=== PATIENT | male | born 1970 | race Caucasian/White ===

== ENCOUNTER 2016-06-09 23:19 | Emergency (ER) | payer OTHER, MEDICARE ==
[~2016-06-09] VITALS: Ht 162.6 cm; Wt 54.4 kg
[~2016-06-09 23:19] MED LIST: AUGMENTIN 875 M1 TAB PO; AUGMENTIN PO; LEVAQUIN25 MG/M1 PO
--- NOTE | 2016-06-10 00:37 | ED GI/GU/ABDOMINAL COMPLAINT ---
History of Present Illness General Chief Complaint: Nausea, Vomiting, Diarrhea Stated Complaint: VOMITING X'S 1 WK HX DOWNS SYNDROME Source: patient Exam Limitations: no limitations Vital Signs & Intake/Output Vital Signs & Intake/Output Vital Signs Date Time Temp Pulse Resp B/P Pulse O2 O2 Flow FiO2 Ox Delivery Rate 06/10 0324 96.8 88 18 120/80 98 Room Air 06/10 0053 96.6 78 18 122/79 96 Room Air 06/10 0049 98 Room Air Allergies Coded Allergies: NO KNOWN ALLERGIES (05/13/13) Reconcile Medications AMOXICILLIN/POTASSIUM CLAV (Augmentin 875-125 Tablet) 875 MG/125 MG TAB 1 TAB PO BID PNEUMONIA CONTINUE ANTIBIOTICS THRU 09/18 Augmentin (Amox-Clav 600-42.9 MG/5 Ml Mayi) 600 MG/5 ML SUSP.RECON 5 ML PO BID INFECTION Ondansetron (Zofran Odt) 4 MG TAB.RAPDIS 1 TAB SL TID PRN VOMITING Triage Nurses Notes Reviewed? yes Onset: Gradual Duration: week(s):, waxing and waning Timing: recent history Quality/Severity: cramping Location: generalized abdomen Radiation: no radiation Activities at Onset: none Prior Abdominal Problems: none Modifying Factors: Improves With: rest. Associated Symptoms: abdominal pain HPI: 45 yo gentleman h/o down's syndrome, presents with nausea, vomiting, diarrhea for 1 week. Usually vomiting after eating. He has had no fever, nor has he seemed to be in discomfort. Past History Medical History Any Pertinent Medical History? 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 No Review of Systems Review of Systems Constitutional: Reports: no symptoms. EENTM: Reports: no symptoms. Respiratory: Reports: no symptoms. Cardiovascular: Reports: no symptoms. GI: Reports: no symptoms. Genitourinary: Reports: no symptoms. Musculoskeletal: Reports: no symptoms. Skin: Reports: no symptoms. Neurological/Psychological: Reports: no symptoms. Hematologic/Endocrine: Reports: no symptoms. Immunologic/Allergic: Reports: no symptoms. All Other Systems: Reviewed and Negative Physical Exam Physical Exam General Appearance: well developed/nourished, no apparent distress Head: atraumatic, normal appearance Eyes: Bilateral: normal appearance. Ears, Nose, Throat, Mouth: hearing grossly normal, moist mucous membrane Neck: normal inspection, supple, full range of motion, normal alignment Respiratory: normal breath sounds, chest non-tender, no respiratory distress, quiet respiration, lungs clear Cardiovascular: regular rate/rhythm Gastrointestinal: normal bowel sounds, soft, non-tender, no organomegaly Back: normal inspection, normal range of motion Extremities: normal range of motion, evidence of injury Neurologic/Psych: no motor/sensory deficits, awake, alert Skin: intact, normal color, warm/dry Core Measures ACS in differential dx? No Severe Sepsis Present: No Septic Shock Present: No Progress Differential Diagnosis: gastroenteritis vs other. Plan of Care: Orders Procedure Date/time Status TROPONIN LEVEL 06/09 2335 Complete LIPASE 06/09 2335 Complete HEPATIC FUNCTION PANEL 06/09 2335 Complete CBC WITHOUT DIFFERENTIAL 06/09 2335 Complete BASIC METABOLIC PANEL 06/09 2335 Complete AMYLASE 06/09 2335 Complete EKG 06/09 2335 Active Laboratory Tests 06/10/16 0040: TSH Cancelled 06/10/16 0040: Anion Gap 16, Estimated GFR > 60, BUN/Creatinine Ratio 17.8, Glucose 100 H, Calcium 9.3, Total Bilirubin 0.7, Direct Bilirubin 0.4, AST 24, ALT 33, Alkaline Phosphatase 79, Troponin I < 0.01, Total Protein 8.0, Albumin 4.3, Amylase 31, Lipase 55, CBC w Diff NO MAN DIFF REQ, RBC 4.74, MCV 93.9, MCH 32.3 H, RDW 13.1 , MPV 6.3 L, Gran % 44.8, Lymphocytes % 43.3, Monocytes % 9.8 H, Eosinophils % 1.1, Basophils % 1.0, Absolute Granulocytes 3.2, Absolute Lymphocytes 3.1, Absolute Monocytes 0.7 H, Absolute Eosinophils 0.1, Absolute Basophils 0.1, PUBS MCHC 34.4 Initial ED EKG: normal axis, normal intervals, normal p-waves, normal QRS complex, normal sinus rhythm Departure Departure Disposition: HOME OR SELF CARE Condition: Stable Clinical Impression Primary Impression: Abdominal pain Secondary Impressions: Gastroenteritis Referrals: LESLIE JAVIER MD (PCP/Family) Departure Forms: Customer Survey General Discharge Information Prescriptions: Current Visit Scripts Ondansetron (Zofran Odt) 1 TAB SL TID PRN VOMITING #10 TAB Comments pt feeling well in ed. labs benign... pt safe for discharge with close follow up.
[2016-06-10 00:50] LABS: ABSOLUTE BASOPHIL COUNT 0.1 /CUMM (0.0-0.2); ABSOLUTE EOSINOPHIL COUNT 0.1 /CUMM (0.0-0.7); ABSOLUTE GRANULOCYTE CT 3.2 /CUMM (1.4-6.5); ABSOLUTE LYMPH COUNT 3.1 /CUMM (1.2-3.4); ABSOLUTE MONOCYTE COUNT 0.7 /CUMM (0.10-0.60); EOSINOPHIL % 1.1 % (0-5); GRANULOCYTE % 44.8 % (42.2-75.2); HEMATOCRIT 44.5 % (42-52); MEAN CORPUSCULAR HGB 32.3 PG (27.0-31.0); MEAN CORPUSCULAR HGB CONC 34.4 G/DL (33.0-37.0); MEAN CORPUSCULAR VOLUME 93.9 FL (80.0-94.0); MEAN PLATELET VOLUME 6.3 FL (7.4-10.4); PLATELET COUNT 397 /CUMM (130-400); RBC DISTRIBUTION WIDTH 13.1 % (11.5-14.5); RED BLOOD CELL CT 4.74 /CUMM (4.70-6.10); WHITE BLOOD CELL COUNT 7.2 /CUMM (4.8-10.8)
[2016-06-10] MEDS ORDERED: ZOFRAN ODT4 M1 SL (03:12)
[2016-06-10 03:24] VITALS: BP 120/80
== END 2016-06-10 03:25 ==
LOC: ERH 23:19
PROVIDERS: Pediatrics
DX: K52.9 Noninfective gastroenteritis and colitis, unspecified (principal)
CPT/HCPCS: 93005; 93010; 96361; 96374; J2405

== ENCOUNTER 2016-09-12 01:21 | Inpatient (IN) | payer OTHER, MEDICARE ==
[~2016-09-12] VITALS: Ht 160 cm; Wt 54.4 kg
[~2016-09-12 01:21] MED LIST changes: +ZOFRAN ODT4 M1 SL
--- NOTE | 2016-09-12 01:47 | ED GI/GU/ABDOMINAL COMPLAINT ---
History of Present Illness General Chief Complaint: General Adult Stated Complaint: VOMITING Source: family Exam Limitations: poor historian Vital Signs & Intake/Output Vital Signs & Intake/Output Vital Signs Date Time Temp Pulse Resp B/P Pulse O2 O2 Flow FiO2 Ox Delivery Rate 09/12 0438 102.1 09/12 0415 102.1 108 18 92 Nasal 2.0L Cannula 09/12 0135 99.6 106 18 129/60 94 Room Air Allergies Coded Allergies: NO KNOWN ALLERGIES (05/13/13) Reconcile Medications Amoxicillin 875 MG TABLET 1 TAB PO BID PNEUMONIA STARTING 09/15/16 Levothyroxine Sodium (Synthroid) 137 MCG TABLET 1 TAB PO DAILY HYPOTHYROIDISM (Reported) Triage Note: TRIAGE: PATIENT TO ER FROM HOME, FRIEND REPORTING 1 EPISODE OF BM INCONTINENCE LAST NIGHT AND VOMITTING TONIGHT, DENIES ANY ABD PAIN. PATIENT HX DOWN SYNDROME. PATIENT FRIEND REPORTING "HE'S JUST DOING ALOT OF COUGHING WHICH IS MAKING HIM THROW UP." Triage Nurses Notes Reviewed? yes Onset: Abrupt Duration: day(s): (2) Timing: recent history No Modifying Factors: none Associated Symptoms: nausea/vomiting, cough HPI: 45 year old male with history of down syndrome presents to the ER with his brother for chief complaint of not feeling well. He is coughing and having post tussive emesis. One episode of stool incontinence. Patient unable to contribute to history taking but points to his throat. Past History Travel History Traveled to [place] past 21 day No Medical History Any Pertinent Medical History? 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 No Review of Systems Review of Systems Constitutional: Reports: see HPI (FROM BROTHER). Denies: chills, fever. EENTM: Reports: no symptoms. Respiratory: Reports: cough. Cardiovascular: Denies: chest pain, palpitations. GI: Reports: nausea, vomiting. Genitourinary: Denies: discharge, dysuria. Musculoskeletal: Reports: no symptoms. Skin: Reports: no symptoms. Neurological/Psychological: Reports: no symptoms. Hematologic/Endocrine: Denies: bruising, bleeding, polyuria, polydipsia. Immunologic/Allergic: Denies: splenectomy. All Other Systems: Reviewed and Negative Physical Exam Physical Exam General Appearance: alert, awake, mild distress, thin Head: atraumatic Eyes: Bilateral: PERRL. Ears, Nose, Throat, Mouth: moist mucous membrane Neck: normal inspection, supple, full range of motion Respiratory: decreased breath sounds Cardiovascular: regular rate/rhythm Peripheral Pulses: 2+ radial (R), 2+ radial (L) Gastrointestinal: soft, non-tender Extremities: normal range of motion Neurologic/Psych: no motor/sensory deficits, awake, alert Skin: intact, normal color, warm/dry Core Measures ACS in differential dx? No Severe Sepsis Present: No Septic Shock Present: No ED Sepsis Exam Date of Focused Sepsis Exam: 09/12/16 Time of Focused Sepsis Exam: 0200 Sepsis Cardiac Exam: Regular Rate/Rhythm Sepsis Resp Exam: DIMINISHED Sepsis Cap Refill Exam: <2 Sec Sepsis Peripheral Pulse Exam: Normal Sepsis Peripheral Pulse Location: Radial Sepsis Skin Color Exam: Normal for Ethnicity Skin Temp/Moisture Exam: Warm/Dry Progress Differential Diagnosis: PNEUMONIA, SEPSIS, GASTROENTERITIS, DEHYDRATION, ANDRE Plan of Care: Orders Procedure Date/time Status Regular Diet 09/12 B Active LACTIC ACID 09/12 0557 Active EKG 09/12 0546 Active RAPID VIRAL INFLUENZA A 09/12 0542 Active THROAT CULTURE W/QUICK STREP 09/12 0542 Active STREP PNEUMO URINARY ANTIGEN 09/12 0542 Active LEGIONELLA URINARY ANTIGEN 09/12 0542 Active Pathway - chart 09/12 0537 Active Pathway - chart 09/12 0439 Active House Staff 09/12 0439 Active Patient Data 09/12 0439 Active LOWER RESPIRATORY CULTURE 09/12 0433 Active Patient Data 09/12 0421 Active EKG 09/12 0419 Active Admit to inpatient 09/12 0412 Active Vital Signs 09/12 0412 Active Code Status 09/12 0412 Active LACTIC ACID 09/12 0257 Complete BLOOD CULTURE 09/12 0254 Active URINALYSIS 09/12 0254 Complete COMPREHENSIVE METABOLIC PANEL 09/12 0213 Complete CBC WITHOUT DIFFERENTIAL 09/12 0213 Complete VTE Mechanical Prophylaxis 09/12 UNK Active Vital Signs 09/12 UNK Active MISTAKE 09/12 UNK Active Intake & Output 09/12 UNK Active Hemoccult 09/12 UNK Active Current Medications Sig/Germán Start time Last Medication Dose Stop Time Status Admin Azithromycin 500 MG 0500 09/13 0500 AC (Zithromax) Sodium Chloride 250 ML (Normal Saline 0.9%) Ceftriaxone Sodium 1,000 MG 0500 09/13 0500 AC (Rocephin) Acetaminophen 325 MG Q6P PRN 09/12 0545 AC (Tylenol) Sodium Chloride 1,000 ML BOLUS ONE 09/12 05 AC (Normal Saline 0.9%) 09/12 0614 Sodium Chloride 1,000 ML Q6H 09/12 05 AC (Normal Saline 0.9%) Laboratory Tests 09/12/16 0445: Urinalysis LIGHT H, Urine Color STRAW, Urine Clarity HAZY H, Urine pH 7.5, Ur Specific [place] 1.010, Urine Protein TRACE H, Urine Ketones TRACE H, Urine Nitrite NEG, Urine Bilirubin NEG, Urine Urobilinogen 1.0, Ur Leukocyte Esterase NEG, Ur Microscopic SEDIMENT EXAMINED, Urine RBC 1-3, Urine WBC RARE, Ur Epithelial Cells FEW, Urine Mucus FEW, Urine Hemoglobin NEG, Urine Glucose NEG 09/12/16209: Lactic Acid 1.1 09/12/16209: Anion Gap 9, Estimated GFR > 60, BUN/Creatinine Ratio 18.8, Glucose 122 H, Calcium 9.1, Total Bilirubin 0.7, AST 23, ALT 33, Alkaline Phosphatase 66, Total Protein 7.1, Albumin 3.5, Globulin 3.6, Albumin/Globulin Ratio 1.0 L, CBC w Diff MAN DIFF ORDERED, RBC 4.28 L, MCV 95.8 H, MCH 32.0 H, RDW 14.1, MPV 6.9 L, Gran % 83.5 H, Lymphocytes % 11.1 L, Monocytes % 5.4, Eosinophils % 0, Basophils % 0 L, Absolute Granulocytes 19.2 H, Segmented Neutrophils 65, Band Neutrophils 12 H, Absolute Lymphocytes 2.6, Lymphocytes 21, Monocytes 2, Absolute Monocytes 1.2 H, Absolute Eosinophils 0, Absolute Basophils 0, Platelet Estimate ADEQUATE, Normocytic RBCs VERIFIED, Normochromic RBCs VERIFIED , PUBS MCHC 33.4 Microbiology 09/12 0542 NASOPHARYN: Influenza Virus A & B Rapid Smear - ORD 09/12 444 URINE ROUT: Legionella Antigen - RECD 09/12 044 URINE ROUT: Streptococcus pneumoniae Antigen (M - RECD 09/12 432 LOWER RESP: Respiratory Culture - COLB 09/12 043 LOWER RESP: Gram Stain - COLB 09/12 0355 BLOOD: Blood Culture - RECD 09/12 034 BLOOD: Blood Culture - RECD LABS, CULTURES, CXR, FLUIDS, ZOFRAN ORDERED. CXR CONSISTENT WITH PNEUMONIA. IV ABX ORDERED. PATIENT ADMITTED TO HOSPITALIST SERVICE. (NORMAN MILLER,[facility]) Diagnostic Imaging: Viewed by Me: Radiology Read, CT Scan. Discussed w/RAD: Radiology Read, CT Scan. Radiology Impression: PATIENT: CARLOS MUSTAFA PRESENT AGE: 45 PATIENT ACCOUNT NO: [id number] : 68 LOCATION: [facility] ORDERING PHYSICIAN: GARLAND AUSTIN MD SERVICE DATE: 09/12/16 EXAM TYPE: CAT - CT ABD & PELVIS W IV CONTRAST EXAMINATION: CT ABDOMEN AND PELVIS WITH CONTRAST CLINICAL INFORMATION: Abdominal pain and vomiting. COMPARISON: None. TECHNIQUE: Contiguous axial thin section helical images of the abdomen and pelvis were performed following the administration of 60 mL of intravenous Optiray 320. The data set was reformatted in the coronal and sagittal planes and reviewed on an independent workstation. DLP: 258 mGy-cm. FINDINGS: Examination is limited secondary to patient motion. Partially visualized is a wedge-shaped focus of opacification within the right middle lobe. The visualized portions of the heart are unremarkable. The liver is of normal size and attenuation without focal lesions nor intrahepatic biliary ductal dilation. A normal gallbladder is identified. There is no wall thickening or discernible pericholecystic fluid. The spleen, pancreas, adrenal glands are unremarkable. Both kidneys are of normal size and attenuation without hydronephrosis or nephrolithiasis. Following the administration of IV contrast, prompt symmetric nephrograms are displayed. There is no abdominal free fluid. There is neither mesenteric nor retroperitoneal lymphadenopathy. Normal unopacified loops of small and large bowel are identified. There is no pelvic free fluid. The urinary bladder is partially filled. There is equivocal bladder wall thickening. There is neither pelvic nor inguinal lymphadenopathy. Bone windows: There is bilateral L5 pars defects with grade 1-2 anterolisthesis of L5 in relation to S1. There is mild disc height loss at L5/S1. The remaining lumbar vertebra are in normal alignment. IMPRESSION: Limited examination secondary to patient motion; however, no evidence for significant acute abdominal or pelvic inflammatory or infectious processes. There is equivocal urinary bladder wall thickening. Consider correlation with urinalysis. Partially visualized is a wedge-shaped focus of opacification within the right middle lobe. This could correspond to atelectasis or a developing infiltrate, but is only partially included on the study. A subsequent chest radiograph was obtained. DICTATED BY: ARMOND SAN MD DATE/ TIME DICTATED:09/12/16344 FREELANCE WRITER:ARMEN DATE/TIME TRANSCRIBED: 09/12/16344 CONFIDENTIAL, DO NOT COPY WITHOUT APPROPRIATE AUTHORIZATION. < Electronically signed in Other Vendor System> SIGNED BY: ARMOND SAN MD 09/12/16356 CXR Impression: PATIENT: CARLOS MUSTAFA PRESENT AGE: 45 PATIENT ACCOUNT NO: [id number] : 68 LOCATION: [facility] ORDERING PHYSICIAN: GARLAND AUSTIN MD SERVICE DATE: 09/12/16 EXAM TYPE: RAD - XRY-CHEST XRAY , ONE VIEW ONLY EXAMINATION: CHEST 1 VIEW CLINICAL INFORMATION: Cough and vomiting. COMPARISON: 09/21/2014. TECHNIQUE: An AP view of the chest is provided. FINDINGS: The cardiac silhouette is not enlarged. The mediastinal and hilar contours are unremarkable. There are neither pleural effusions nor pneumothoraces. There is a wedge-shaped focus of opacification overlying the right lung base. The osseous structures are unremarkable. IMPRESSION: Which a focus of opacification overlying the medial right lung base which could correspond to atelectasis or a developing infiltrate. Recommendation is for a followup chest series to be obtained following treatment and/or resolution of symptoms to assure resolution of this appearance. DICTATED BY: ARMOND SAN MD DATE/TIME DICTATED:09/12/16351 FREELANCE WRITER:ARMEN DATE/TIME TRANSCRIBED:09/12/16351 CONFIDENTIAL, DO NOT COPY WITHOUT APPROPRIATE AUTHORIZATION. <Electronically signed in Other Vendor System> SIGNED BY: ARMOND SAN MD 09/12/16356 Initial ED EKG: NSR Departure Departure Time of Disposition: 447 Disposition: STILL A PATIENT Condition: Stable Clinical Impression Primary Impression: Pneumonia Referrals: PATIENT HAS NO PRIMARY CARE DR (PCP/Family) Departure Forms: Customer Survey General Discharge Information Prescriptions: Current Visit Scripts Amoxicillin 1 TAB PO BID #8 TAB STARTING 09/15/16 Admission Note Spoke With: JUSTICE JAMES MD Documentation of Exam: Documentation of any treatments & extenuating circumstances including Concerns Regarding Discharge (functional status, medication knowledge or non-compliance, living conditions, etc.) that warrant an admission rather than observation: [ NASAL OXYGEN, IV ABX, F/U CULTURES, TRC/NEBS, SPUTUM CULTURE, ANTIPYRETICS]
[2016-09-12 02:30] LABS: ABSOLUTE BASOPHIL COUNT 0 /CUMM (0.0-0.2); ABSOLUTE EOSINOPHIL COUNT 0 /CUMM (0.0-0.7); ABSOLUTE GRANULOCYTE CT 19.2 /CUMM (1.4-6.5); ABSOLUTE LYMPH COUNT 2.6 /CUMM (1.2-3.4); ABSOLUTE MONOCYTE COUNT 1.2 /CUMM (0.10-0.60); BASOPHIL % 0 % (0.0-2.0); EOSINOPHIL % 0 % (0-5); MEAN CORPUSCULAR HGB CONC 33.4 G/DL (33.0-37.0); MEAN CORPUSCULAR VOLUME 95.8 FL (80.0-94.0); MEAN PLATELET VOLUME 6.9 FL (7.4-10.4); PLATELET COUNT 231 /CUMM (130-400); RBC DISTRIBUTION WIDTH 14.1 % (11.5-14.5); RED BLOOD CELL CT 4.28 /CUMM (4.70-6.10)
[2016-09-12 02:33] LABS: GRANULOCYTE % 83.5 % (42.2-75.2)
--- NOTE | 2016-09-12 03:57 | RADIOLOGY REPORT ---
EXAMINATION: CHEST 1 VIEW CLINICAL INFORMATION: Cough and vomiting. COMPARISON: 09/21/2014. TECHNIQUE: An AP view of the chest is provided. FINDINGS: The cardiac silhouette is not enlarged. The mediastinal and hilar contours are unremarkable. There are neither pleural effusions nor pneumothoraces. There is a wedge-shaped focus of opacification overlying the right lung base. The osseous structures are unremarkable. IMPRESSION: Which a focus of opacification overlying the medial right lung base which could correspond to atelectasis or a developing infiltrate. Recommendation is for a followup chest series to be obtained following treatment and/or resolution of symptoms to assure resolution of this appearance.
--- NOTE | 2016-09-12 03:57 | CT SCAN REPORT ---
EXAMINATION: CT ABDOMEN AND PELVIS WITH CONTRAST CLINICAL INFORMATION: Abdominal pain and vomiting. COMPARISON: None. TECHNIQUE: Contiguous axial thin section helical images of the abdomen and pelvis were performed following the administration of 60 mL of intravenous Optiray 320. The data set was reformatted in the coronal and sagittal planes and reviewed on an independent workstation. DLP: 258 mGy-cm. FINDINGS: Examination is limited secondary to patient motion. Partially visualized is a wedge-shaped focus of opacification within the right middle lobe. The visualized portions of the heart are unremarkable. The liver is of normal size and attenuation without focal lesions nor intrahepatic biliary ductal dilation. A normal gallbladder is identified. There is no wall thickening or discernible pericholecystic fluid. The spleen, pancreas, adrenal glands are unremarkable. Both kidneys are of normal size and attenuation without hydronephrosis or nephrolithiasis. Following the administration of IV contrast, prompt symmetric nephrograms are displayed. There is no abdominal free fluid. There is neither mesenteric nor retroperitoneal lymphadenopathy. Normal unopacified loops of small and large bowel are identified. There is no pelvic free fluid. The urinary bladder is partially filled. There is equivocal bladder wall thickening. There is neither pelvic nor inguinal lymphadenopathy. Bone windows: There is bilateral L5 pars defects with grade 1-2 anterolisthesis of L5 in relation to S1. There is mild disc height loss at L5/S1. The remaining lumbar vertebra are in normal alignment. IMPRESSION: Limited examination secondary to patient motion; however, no evidence for significant acute abdominal or pelvic inflammatory or infectious processes. There is equivocal urinary bladder wall thickening. Consider correlation with urinalysis. Partially visualized is a wedge-shaped focus of opacification within the right middle lobe. This could correspond to atelectasis or a developing infiltrate, but is only partially included on the study. A subsequent chest radiograph was obtained.
--- NOTE | 2016-09-12 04:34 | History & Physical ---
OVIDIO VIVEROS 09/12/16 0433: General Information and HPI MD Statement: I have seen and personally examined CARLOS MUSTAFA and documented this H&P. The patient is a 45 year old M who presented with a patient stated chief complaint of fever, cough for 2 days Source of Information: family Exam Limitations: unable to give history, clinical condition History of Present Illness: This is a 45-year-old gentleman with past medical history significant for Downs syndrome, mental retardation, psoriasis, hypothyroidism, problems with swallowing, history of pneumonia presented to [facility] emergency department with chief complaint of fever, cough for 2 days. Most of the history was provided by his brother who is at bedside. Patient was mentally retarded and couldn't provide any history, couldn't follow any commands. According to the brother who is at bedside, patient started having cough for 2 days. Cough has worsened for 1 day, which is associated with vomiting -one episode no blood in the vomitus, from severe coughing. Also reported fever of 101.2. No chills. No phlegm production. No difficulty breathing. No chest pain or racing of heart. Patient has one episode of bowel movement incontinence because of severe cough. Family reported sick contacts around him. Patient does take chopped food as he didn't have teeth. Denies any episodes of choking Patient has 2 admissions in [facility] for community-acquired pneumonia In 2013 and 2014. He has some problem with swallowing. He was found to have oral phase dysphagia, decreased mastication and delayed swallowing. He was advised to take ground diet and thin liquids. Denies any chest pain, racing of heart, difficulty breathing, nausea, constipation or diarrhea, problems with bladder or bowel habits, headache. Denies any smoking, alcohol intake, illicit drug abuse denies any travel history. Allergies/Medications Allergies: Coded Allergies: NO KNOWN ALLERGIES (05/13/13) Compliance With Home Meds: GOOD Past History Travel History Traveled to [place] past 21 day No Medical History Neurological: DOWN SYNDROME EENT: NONE Cardiovascular: NONE Respiratory: pneumonia Gastrointestinal: NONE Hepatic: NONE Renal: NONE Musculoskeletal: NONE Psychiatric: NONE Endocrine: NONE Blood Disorders: NONE Cancer(s): NONE INFORMATION SYSTEMS SECURITY SPECIALIST/Reproductive: NONE Other Medical Hx: Down's syndrome History of MRSA: No History of VRE: No History of CDIFF: No Surgical History Surgical History: none Past Family/Social History Family History Relations & Conditions if any MOTHER Relation not specified for: FH: asthma FH: emphysema Psychosocial History Smoking Status: Never Smoked ETOH Use: denies use Illicit Drug Use: denies illicit drug use Review of Systems Review of Systems Constitutional: Reports: fever. Denies: chills, malaise, weakness. EENTM: Denies: no symptoms. Cardiovascular: Denies: chest pain, edema, orthopena, palpitations, syncope. Respiratory: Reports: cough. Denies: hemoptysis, orthopnea, short of breath, sputum production, stridor, wheezing. GI: Denies: abdominal pain, diarrhea, nausea, vomiting. Genitourinary: Denies: dysuria, frequency, urgency. Musculoskeletal: Denies: back pain, joint pain. Skin: Denies: no symptoms. Neurological/Psychological: Denies: headache, numbness, tingling, tremors. Exam & Diagnostic Data Last 24 Hrs of Vital Signs/I&O Vital Signs Date Time Temp Pulse Resp B/P Pulse O2 O2 Flow FiO2 Ox Delivery Rate 09/12 0630 99.1 108 18 93/50 92 Nasal 2.0L Cannula 09/12 0438 102.1 09/12 0415 102.1 108 18 92 Nasal 2.0L Cannula 09/12 0135 99.6 106 18 129/60 94 Room Air Physical Exam General Appearance Alert Skin No Rashes HEENT Atraumatic, PERRLA Neck Supple, No JVD Lymphatic Axillary nl, Cervical nl Cardiovascular Regular Rate, Normal S1, Normal S2, No Murmurs Lungs decreased breath sounds Abdomen Normal Bowel Sounds, Soft Neurological Strength at 5/5 X4 Ext, Normal Tone, Cranial Nerves 3-12 NL, Reflexes 2+ Extremities No Clubbing, No Cyanosis, No Edema Vascular Normal Pulses Last 24 Hrs of Labs/Jona: Laboratory Tests 09/12/16 0445: Urinalysis LIGHT H, Urine Color STRAW, Urine Clarity HAZY H, Urine pH 7.5, Ur Specific [place] 1.010, Urine Protein TRACE H, Urine Ketones TRACE H, Urine Nitrite NEG, Urine Bilirubin NEG, Urine Urobilinogen 1.0, Ur Leukocyte Esterase NEG, Ur Microscopic SEDIMENT EXAMINED, Urine RBC 1-3, Urine WBC RARE, Ur Epithelial Cells FEW, Urine Mucus FEW, Urine Hemoglobin NEG, Urine Glucose NEG 09/12/16 0210: Lactic Acid 1.1 09/12/16 0210: Anion Gap 9, Estimated GFR > 60, BUN/Creatinine Ratio 18.8, Glucose 122 H, Calcium 9.1, Total Bilirubin 0.7, AST 23, ALT 33, Alkaline Phosphatase 66, Total Protein 7.1, Albumin 3.5, Globulin 3.6, Albumin/Globulin Ratio 1.0 L, CBC w Diff MAN DIFF ORDERED, RBC 4.28 L, MCV 95.8 H, MCH 32.0 H, RDW 14.1, MPV 6.9 L, Gran % 83.5 H, Lymphocytes % 11.1 L, Monocytes % 5.4, Eosinophils % 0, Basophils % 0 L, Absolute Granulocytes 19.2 H, Segmented Neutrophils 65, Band Neutrophils 12 H, Absolute Lymphocytes 2.6, Lymphocytes 21, Monocytes 2, Absolute Monocytes 1.2 H, Absolute Eosinophils 0, Absolute Basophils 0, Platelet Estimate ADEQUATE, Normocytic RBCs VERIFIED, Normochromic RBCs VERIFIED , PUBS MCHC 33.4 Microbiology 09/12 06 NASOPHARYN: Influenza Virus A & B Rapid Smear - COMP 09/12 444 URINE ROUT: Legionella Antigen - COMP 09/12 444 URINE ROUT: Streptococcus pneumoniae Antigen (M - COMP STREP PNEUMO BACTERIAL AG 09/12 432 LOWER RESP: Respiratory Culture - COLB 09/12 432 LOWER RESP: Gram Stain - COLB 09/12 035 BLOOD: Blood Culture - RECD 09/12 344 BLOOD: Blood Culture - RECD Assessment/Plan Assessment: This is a 45-year-old gentleman with past medical history significant for Downs syndrome, mental retardation, psoriasis, hypothyroidism, problems with swallowing, history of pneumonia presented to [facility] emergency department with chief complaint of fever, cough for 2 days. Most of the history was provided by his brother who is at bedside. Patient was mentally retarded and couldn't provide any history, couldn't follow any commands. Vital signs on admission: Maximum temperature 102.1, pulse rate 106, pressure 129/60, oxygen saturation 94% on room air. Pertinent lab data on admission: Leukocytosis to 23 with granulocytosis and bandemia. Hemoglobin 13.7, hematocrit 41. Sodium 137, potassium 3.6, anion gap 9, glucose 122, creatinine 0.8, lactic acid 1.1. AST 23, ALT. UA negative. Chest x-ray on admission:A focus of opacification overlying the medial right lung base which could correspond to atelectasis or a developing infiltrate. Recommendation is for a followup chest series to be obtained following treatment and/or resolution of symptoms to assure resolution of this appearance. Abdomen/pelvis CT:Limited examination secondary to patient motion; however, no evidence for significant acute abdominal or pelvic inflammatory or infectious processes. There is equivocal urinary bladder wall thickening. Consider correlation with urinalysis. Partially visualized is a wedge-shaped focus of opacification within the right middle lobe. This could correspond to atelectasis or a developing infiltrate, but is only partially included on the study. A subsequent chest radiograph was obtained. Problem list 1. Community-acquired pneumonia 2. Hypothyroidism 3. Down syndrome Community acquired pneumonia Patient presented with fever 101.2 and cough. Patient has sick contacts around him. Tachycardic and leukocytosis on admission. Fulfilled SIRS criteria on admission. Chest x-ray showed wedge focus of opacification on right lung base suggestive of atelectasis versus infiltrate. he met criteria for sepsis * Admitted to general medical floor for further treatment. * Monitor vitals closely * Maintain oxygen saturation above 90% * Supplemental oxygen if necessary * Monitor WBC count * Leukocytosis and bandemia on admission * IV antibiotics ceftriaxone and azithromycin * IV fluids * Lactate 1.1 on admission * Blood cultures * Follow-up sputum cultures * Follow-up urine antigens-streptococcus and legionella * TRC * Nebs * Follow-up rapid flu * Follow-up strep throat * Tylenol for fever Hypothyroidism: Family is unsure of the dose of patient's levothyroxine. They will bring the medication to the hospital later today. Please confirm the dose and restart the medication. #DVT prophylaxis: Subcutaneous Lovenox. #Patient is full code. Chopped diet As Ranked By This Provider Problem List: 1. Pneumonia Core Measures/Miscellaneous Acute Coronary Syndrome ACS Diagnosis: No Cerebrovascular Accident CVA/TIA Diagnosis: No Congestive Heart Failure CHF Diagnosis: No Venous Thromboembolism VTE Risk Factors: Age > 40 [facility] prophylaxis d/t: No contraindications No VTE Pharm Prophylaxis d/t: No contraindications VTE Diagnosis: No VTE Type: NONE VTE Confirmed by (Test): NONE Severe Sepsis Severe Sepsis Present: No Septic Shock Septic Shock Present: No Miscellaneous Documentation Attending Case Discussed With: JUSTICE JAMES MD Primary Care Physician: PATIENT HAS NO PRIMARY CARE DR Patient sees these Specialists none Level of Patient Care: General Medicine NING SANTIAGO 09/12/16 0437: General Information and HPI Allergies/Medications Home Med list Levothyroxine Sodium (Synthroid) 137 MCG TABLET 1 TAB PO DAILY HYPOTHYROIDISM (Reported) Resident Review Statement Resident Statement: examined this patient, discussed with intern architect, agreed with intern architect Other Findings: CC: "Fever and cough" This is a 45-year-old gentleman with past medical history significant for Down syndrome and hypothyroidism was brought to the hospital for cough and fever. Patient is unable to provide any history or review of system, he is also not following commands and is not cooperative for physical exam. Patient's 2 brothers who are present at [facility], helped with history and review of system. Patient started having cough 1.5 days ago, developed fever today along(101.2) with nausea and episode of bowel incontinence. He has history of sick contacts (brother and sister with bronchitis). Please see above for more details. Vital signs on admission: Maximum temperature 102.1, pulse rate 106, pressure 129/60, oxygen saturation 94% on room air. Physical exam at the time of admission: Not cooperative, NAD. HEENT: H NCAT. moist mucous membrane. Normal pharynx. Neck: Supple, no JVD, no carotid bruit, no thyromegaly, no lymphadenopathy. CV: RRR, no murmur. Lungs: Decreased breath sounds bilaterally. Abdomen: Normal bowel sounds, Soft, ND, NT. Extremities: No lower extremity edema. Skin: Warm, normal capillary refill. Pertinent lab data on admission: Leukocytosis to 23 with granulocytosis and bandemia. Hemoglobin 13.7, hematocrit 41. Sodium 137, potassium 3.6, anion gap 9, glucose 122, creatinine 0.8, lactic acid 1.1. AST 23, ALT. UA negative. Chest x-ray on admission:A focus of opacification overlying the medial right lung base which could correspond to atelectasis or a developing infiltrate. Recommendation is for a followup chest series to be obtained following treatment and/or resolution of symptoms to assure resolution of this appearance. Abdomen/pelvis CT:Limited examination secondary to patient motion; however, no evidence for significant acute abdominal or pelvic inflammatory or infectious processes. There is equivocal urinary bladder wall thickening. Consider correlation with urinalysis. Partially visualized is a wedge-shaped focus of opacification within the right middle lobe. This could correspond to atelectasis or a developing infiltrate, but is only partially included on the study. A subsequent chest radiograph was obtained. Problem list/plan: #CAP: Patient was febrile, had leukocytosis to 23 source of infection lungs: He meets criteria for sepsis. Lactic acid was negative. IV fluids were started. Blood cultures were ordered . Oxygen supplementation to maintain oxygen saturation above 92%. Acetaminophen to control fever. No suspicion for aspiration or possibility of MRSA infection. Will maintain the patient on beta lactam and macrolide for treatment of community-acquired pneumonia. Will order sputum culture, rapid strep culture, flu swab, urinary legionella pneumonia antigen. #Hypothyroidism: Family is unsure of the dose of patient's levothyroxine. They will bring the medication to the hospital later today. Please confirm the dose and restart the medication. #DVT prophylaxis: Subcutaneous Lovenox. #Patient is full code. JUSTICE JAMES 09/12/16 0727: Attending MD Review Statement Attending Statement Attending MD Statement: examined this patient, discuss w/resident/PA/BIOINFORMATICS SUPPORT SPECIALIST, agreed w/resident/PA/BIOINFORMATICS SUPPORT SPECIALIST, discussed with family, reviewed EMR data (avail), reviewed images, amended to note Attending Assessment/Plan: CC: Cough PMH: Down syndrome, mental retardation, hypothyroidism Patient was brought in by his brothers for cough since last 2 days, with excessive cough and patient threw up once, and had one episode of bowel incontinence. His maximum fever at home was 101.2. Patient does not provide any details. Vitals: T max 102.1, tachycardic, RR 18, blood pressure 129/60, saturating well on 2 L nasal cannula. On examination patient does not allow much examination, not cooperative and not taking deep breaths for chest auscultation CVS: S1-S2, ? 2/6 diastolic murmur in mitral area abdomen: Soft, NT, bowel sounds present, voluntarily moving all extremities but does not follow much instructions for neuro exam. Labs: WBC 23,000, with neutrophils 83%, and bands 12, chloride 91, bicarbonate 31, anion gap 9, glucose 122, lactate 1.1, LFT unremarkable. CXR: Which a focus of opacification overlying the medial right lung base which could correspond to atelectasis or a developing infiltrate. CT abdomen pelvis with IV contrast: Limited examination secondary to patient motion; however, no evidence for significant acute abdominal or pelvic inflammatory or infectious processes. There is equivocal urinary bladder wall thickening. Consider correlation with urinalysis. Partially visualized is a wedge-shaped focus of opacification within the right middle lobe. This could correspond to atelectasis or a developing infiltrate, but is only partially included on the study. A subsequent chest radiograph was obtained. A and P #1 sepsis #2 pneumonia #3 history of mental retardation, Down syndrome, hypothyroidism - Patient received 1 L bolus in ER, continue 1-2 L IV and is bolus followed by maintenance drip at 100-150 mL per hour - Continue IV ceftriaxone, azithromycin for community-acquired pneumonia - Continue Mucinex 600 mg by mouth twice a day - Continue oxygen - Recheck lactate if patient gets hypotensive - Blood culture - Watch for blood pressure
--- NOTE | 2016-09-12 07:28 | Admission Certification ---
Admission Certification Certification Statement - As attending physician, I certify that at the time of - admission, based on clinical presentation, severity of - symptoms, need for further diagnostic testing and - therapeutic interventions, and risk of adverse outcomes - without in-hospital treatment, in my clinical assessment, - this patient requires an acute hospital stay for a minimum - of two nights or longer. I have also considered psychsocial - factors such as support system, advanced age, financial - issues, cognitive issues, and failed out-patient treatments, - past re-admission history, safety of patient, and lack of - compliance as applicable. Specific rationale supporting this admission is: Sepsis with community acquired pneumonia
[2016-09-12 08:00] VITALS: BP 104/70
[2016-09-12] MEDS ORDERED: SYNTHROID137 MCG PO (11:38)
[2016-09-12 14:27] VITALS: BP 116/70
--- NOTE | 2016-09-12 16:27 | PN- Att Addend ---
Attending Addendum Attending Brief Note S: The patient was seen and appears to have been improved. Largely non-verbal communication. Appears comfortable. O: VS: Vital Signs Date Time Temp Pulse Resp B/P Pulse O2 O2 Flow FiO2 Ox Delivery Rate 09/12 1427 98.1 98 20 116/70 95 Room Air 09/12 0847 98.4 09/12 0800 92 Nasal 2.0L Cannula 09/12 0800 98.4 100 18 104/70 92 Nasal 1.5L Cannula 09/12 0630 99.1 108 18 93/50 92 Nasal 2.0L Cannula 09/12 0438 102.1 09/12 0415 102.1 108 18 92 Nasal 2.0L Cannula 09/12 0135 99.6 106 18 129/60 94 Room Air Intake & Output 09/12 1600 09/12 0800 09/12 0000 Intake Total Output Total Balance Number 1 Bowel Movements Patient 54.431 kg Weight Current Medications Sig/Germán Start time Last Medication Dose Route Stop Time Status Admin Acetaminophen 325 MG Q6P PRN 09/12 0545 AC PO Acetaminophen 0 .STK-MED ONE 09/12 0422 DC IV Acetaminophen 1,000 MG ONCE ONE 09/12 0415 DC 09/12 N/A 1 UNIT IV 09/12 0429 0438 Azithromycin 500 MG 0500 09/13 0500 AC Sodium Chloride 250 ML IV Azithromycin 500 MG ONCE ONE 09/13 0445 DC Sodium Chloride 250 ML IV 09/13 0544 Azithromycin 500 MG ONCE ONE 09/12 0415 DC 09/12 Sodium Chloride 250 ML IV 09/12 0514 0459 Ceftriaxone Sodium 1,000 MG 0500 09/13 0500 AC IV Ceftriaxone Sodium 0 .STK-MED ONE 09/12 0422 DC .ROUTE Ceftriaxone Sodium 1,000 MG ONCE ONE 09/12 0415 DC 09/12 IV 09/12 0416 0438 Enoxaparin Sodium 40 MG DAILY 09/12 1000 AC 09/12 SC 0925 Levothyroxine Sodium 0.137 MG DAILY AC 09/12 1139 AC 09/12 PO 1359 Ondansetron HCl 0 .STK-MED ONE 09/12 0237 DC .ROUTE Ondansetron HCl 4 MG ONCE ONE 09/12 0230 DC 09/12 IV 09/12 0231 0231 Sodium Chloride 1,000 ML BOLUS ONE 09/12 0515 DC 09/12 IV 09/12 0614 0623 Sodium Chloride 1,000 ML Q6H 09/12 0515 DC 09/12 IV 0925 Sodium Chloride 1,000 ML BOLUS ONE 09/12 0230 DC 09/12 IV 09/12 0329 0231 HEENT: quan- moist mucosa Chest: diminished breath sounds with occ rhonchi Cor: RRR, nl S1, S2 w/o murm Abd: BS+, soft, NT Ext: no edema Labs: Laboratory Tests 09/12/16444: Urinalysis LIGHT H, Urine Color STRAW, Urine Clarity HAZY H, Urine pH 7.5, Ur Specific [place] 1.010, Urine Protein TRACE H, Urine Ketones TRACE H, Urine Nitrite NEG, Urine Bilirubin NEG, Urine Urobilinogen 1.0, Ur Leukocyte Esterase NEG, Ur Microscopic SEDIMENT EXAMINED, Urine RBC 1-3, Urine WBC RARE, Ur Epithelial Cells FEW, Urine Mucus FEW, Urine Hemoglobin NEG, Urine Glucose NEG 09/12/16209: Lactic Acid 1.1 09/12/16209: Anion Gap 9, Estimated GFR > 60, BUN/Creatinine Ratio 18.8, Glucose 122 H, Calcium 9.1, Total Bilirubin 0.7, AST 23, ALT 33, Alkaline Phosphatase 66, Total Protein 7.1, Albumin 3.5, Globulin 3.6, Albumin/Globulin Ratio 1.0 L, CBC w Diff MAN DIFF ORDERED, RBC 4.28 L, MCV 95.8 H, MCH 32.0 H, RDW 14.1, MPV 6.9 L, Gran % 83.5 H, Lymphocytes % 11.1 L, Monocytes % 5.4, Eosinophils % 0, Basophils % 0 L, Absolute Granulocytes 19.2 H, Segmented Neutrophils 65, Band Neutrophils 12 H, Absolute Lymphocytes 2.6, Lymphocytes 21, Monocytes 2, Absolute Monocytes 1.2 H, Absolute Eosinophils 0, Absolute Basophils 0, Platelet Estimate ADEQUATE, Normocytic RBCs VERIFIED, Normochromic RBCs VERIFIED , PUBS MCHC 33.4 Microbiology 09/12 1142 STOOL: Clostridium difficile Toxin A & B - COLB 09/12 604 NASOPHARYN: Influenza Virus A & B Rapid Smear - COMP 09/12 444 URINE ROUT: Legionella Antigen - COMP 09/12 444 URINE ROUT: Streptococcus pneumoniae Antigen (M - COMP STREP PNEUMO BACTERIAL AG 09/12 432 LOWER RESP: Respiratory Culture - COLB 04/11 0433 LOWER RESP: Gram Stain - COLB 09/12 0355 BLOOD: Blood Culture - RECD 09/12 034 BLOOD: Blood Culture - RECD Impression/Plan: #Community Acquired Pneumonia- appears to be responding to medications. Urine + strep pneumo. Plan: Continue current care- Ceftriaxone/Zithromax. #Acute Hypoxic Respiratory Failure- saturating well on nasal oxygen. Plan: Continue oxygen and monitor pulse oximetry. #SIRS/Sepsis- temperature decreased on antibiotics. Plan: Will follow WBC/temp, etc. #Hypothyroid- on Levothyroxine. Plan: Continue Levothyroxine.
[2016-09-12 22:39] VITALS: BP 114/60
[2016-09-13 06:20] VITALS: BP 108/68
--- NOTE | 2016-09-13 07:15 | PN- Housestaff ---
TIAN MILLER,MIGUEL 09/13/16 0715: Subjective Follow-up For: Community-acquired pneumonia Subjective: Patient seen and examined. He is seen lying flat in bed resting comfortably. He appears to be in no acute distress. At his bedside is his niece who reports that he slept well overnight and appears quite tired/somnolent but otherwise appearing better. Due to patient's history of Down syndrome further subjective complaints are unobtainable. Review of systems is unobtainable. No overnight events reported. Review of Systems Constitutional: Reports: see HPI. Objective Last 24 Hrs of Vital Signs/I&O Vital Signs Date Time Temp Pulse Resp B/P Pulse O2 O2 Flow FiO2 Ox Delivery Rate 09/13 1423 98.2 74 20 130/71 92 Room Air 09/13 1100 92 Room Air 09/13 0800 Room Air 09/13 0620 99.9 90 18 108/68 90 Room Air 09/12 2239 99.0 86 20 114/60 92 Intake & Output 09/13 1600 09/13 0800 09/13 0000 Intake Total 800 100 100 Output Total 1000 150 650 Balance -200 -50 -550 Intake, Oral 800 100 100 Output, Urine 1000 150 650 Physical Exam General Appearance: Alert, Cooperative, No Acute Distress Other Physical Findings: General -thin middle-aged man in no acute distress HEENT - NCAT, PERRL, EOMI, anicteric sclera Cardio - S1, S2 w/o murmurs/gallops/rubs Resp -diminished airflow bilaterally with scant bibasilar wheezing GI - soft, nontender, nondistended, bowel sounds present Neuro - Awake and alert, CN II - XII grossly intact Extremities -normal pulses, no cyanosis/clubbing/edema Current Medications: Current Medications Sig/Germán Start time Last Medication Dose Route Stop Time Status Admin Acetaminophen 325 MG Q6P PRN 09/12 0545 AC PO Azithromycin 500 MG 0500 09/13 0500 DC 09/13 Sodium Chloride 250 ML IV 0501 Azithromycin 500 MG ONCE ONE 09/13 0445 DC Sodium Chloride 250 ML IV 09/13 0544 Ceftriaxone Sodium 1,000 MG 0500 09/13 0500 AC 09/13 IV 0501 Enoxaparin Sodium 40 MG DAILY 09/12 1000 AC 09/13 SC 0958 Levothyroxine Sodium 0.137 MG DAILY AC 09/12 1139 AC 09/13 PO 0644 Last 24 Hrs of Lab/Jona Results Last 24 Hrs of Labs/Mics: Laboratory Tests 09/13/16 0758: Anion Gap 8, Estimated GFR > 60, BUN/Creatinine Ratio 7.5, CBC w Diff NO MAN DIFF REQ, RBC 3.88 L, MCV 96.3 H, MCH 32.1 H, RDW 14.1, MPV 7.3 L, Gran % 81.2 H, Lymphocytes % 11.9 L, Monocytes % 6.6, Eosinophils % 0, Basophils % 0.3, Absolute Granulocytes 14.6 H, Absolute Lymphocytes 2.1, Absolute Monocytes 1.2 H, Absolute Eosinophils 0, Absolute Basophils 0, PUBS MCHC 33.3 Assessment/Plan Assessment: Patient has clinically improving community-acquired pneumonia while maintained on intravenous antibiotics. He remains afebrile however has persistently elevated, but improving leukocytosis. Strep pneumonia antigen was positive yesterday and this morning one set of blood culture obtained in the ED demonstrated growth of gram-positive cocci in clusters, most likely loss prevention representative of a contaminant. Community-acquired pneumonia/sepsis Patient with a history of Down syndrome requiring aid with activities daily living seen for evaluation of cough and fever. Patient met criteria for sepsis in the ED with temp 102.1, HR 106-108, WBC 23.0 with 12 bands and chest x-ray demonstrating a focus of opacification overlying the medial right lung base. Follow-up CT scan further demonstrated a wedge-shaped focus of opacification within the right middle lobe. Urinary strep pneumo antigen positive. Blood culture positive for gram-positive cocci in clusters in 1 bottle. Patient was given ceftriaxone/azithromycin in the ED. Azithromycin was discontinued after strep pneumo antigen returned positive. -Gen. medicine -Supplemental oxygen, goal >92%, taper as tolerated -TRC with albuterol when necessary -Ceftriaxone 1 g IV daily -Follow-up cultures and sensitivities Hypothyroidism-Synthroid 137 g by mouth daily Pain plan-acetaminophen Diet-regular diet (mechanical soft/thin) DVT prophylaxis-old Lovenox CODE STATUS-full code Problem List: 1. Community acquired pneumonia 2. Sepsis Pain Ratin Pain Location: None Pain Goal: Remain pain free Pain Plan: See assessment Tomorrow's Labs & Rationales: CBC - pneumonia/leukocytosis RAINE MILLER,NATIVIDAD 04/12/17 1233: Attending MD Review Statement Attending Statement Attending MD Statement: examined this patient, discuss w/resident/PA/MISSION COORDINATOR, agreed w/resident/PA/MISSION COORDINATOR, discussed with family, reviewed EMR data (avail), discussed with nursing, discussed with case mgmt, amended to note Attending Assessment/Plan: Patient seen and examined. Jovial and not in any distress. No new complaints. He is afebrile and not requiring oxygen. On examination his lungs are clear bilaterally. Family denies any difficulty with his meals provided they are chopped into small pieces. His blood cultures are positive however this is one out of two culture and growing GPC in clusters, likely contaminants. Recommendations: -Continue current antibiotic regimen. -Anticipate discharge in 48hrs if he continues to do well. -Follow up complete culture reports.
[2016-09-13 09:18] LABS: ABSOLUTE BASOPHIL COUNT 0 /CUMM (0.0-0.2); ABSOLUTE EOSINOPHIL COUNT 0 /CUMM (0.0-0.7); ABSOLUTE GRANULOCYTE CT 14.6 /CUMM (1.4-6.5); ABSOLUTE LYMPH COUNT 2.1 /CUMM (1.2-3.4); ABSOLUTE MONOCYTE COUNT 1.2 /CUMM (0.10-0.60); BASOPHIL % 0.3 % (0.0-2.0); EOSINOPHIL % 0 % (0-5); GRANULOCYTE % 81.2 % (42.2-75.2); HEMATOCRIT 37.4 % (42-52); MEAN CORPUSCULAR HGB 32.1 PG (27.0-31.0); MEAN CORPUSCULAR HGB CONC 33.3 G/DL (33.0-37.0); MEAN CORPUSCULAR VOLUME 96.3 FL (80.0-94.0); MEAN PLATELET VOLUME 7.3 FL (7.4-10.4); PLATELET COUNT 244 /CUMM (130-400); RBC DISTRIBUTION WIDTH 14.1 % (11.5-14.5); RED BLOOD CELL CT 3.88 /CUMM (4.70-6.10); WHITE BLOOD CELL COUNT 17.9 /CUMM (4.8-10.8)
[2016-09-13 14:23] VITALS: BP 130/71
[2016-09-13 22:51] VITALS: BP 110/70
[2016-09-14 06:50] VITALS: BP 96/70
--- NOTE | 2016-09-14 07:12 | PN- Housestaff ---
MIGUEL OVERTON MD 09/14/16 0712: Subjective Follow-up For: Community-acquired pneumonia Subjective: Patient seen and examined. He is seen sitting upright in bed resting comfortably while on room air. He appears to be in no acute distress. Collateral information obtained from several family members in room reveals that he "looks better today" and is "more active". Subjective complaints are unobtainable from patient due to his history of Down syndrome. Review of systems is unobtainable. No overnight events reported. Review of Systems Constitutional: Reports: see HPI. Objective Last 24 Hrs of Vital Signs/I&O Vital Signs Date Time Temp Pulse Resp B/P Pulse O2 O2 Flow FiO2 Ox Delivery Rate 09/14 1134 57 18 100/78 95 Room Air 09/14 0800 Room Air 09/14 0650 97.9 51 20 96/70 92 Room Air 09/14 0000 Room Air 09/13 2251 99.2 61 20 110/70 90 Room Air Intake & Output 09/14 1600 09/14 0800 09/14 0000 Intake Total 120 120 Output Total Balance 120 120 Intake, Oral 120 120 Physical Exam General Appearance: Alert, Cooperative, No Acute Distress Other Physical Findings: General -thin middle-aged man in no acute distress HEENT - NCAT, PERRL, EOMI, anicteric sclera Cardio - S1, S2 w/o murmurs/gallops/rubs Resp -diminished airflow bilaterally with scant bibasilar wheezing GI - soft, nontender, nondistended, bowel sounds present Neuro - Awake and alert, CN II - XII grossly intact, baseline cognitive deficits Extremities -normal pulses, no cyanosis/clubbing/edema Current Medications: Current Medications Sig/Germán Start time Last Medication Dose Route Stop Time Status Admin Acetaminophen 325 MG Q6P PRN 09/12 0545 DCD PO Ceftriaxone Sodium 1,000 MG 0500 09/13 0500 DCD 09/14 IV 0548 Enoxaparin Sodium 40 MG DAILY 09/12 1000 DCD 09/14 SC 0920 Levothyroxine Sodium 0.137 MG DAILY AC 09/12 1139 DCD 09/14 PO 0548 Last 24 Hrs of Lab/Jona Results Last 24 Hrs of Labs/Mics: Laboratory Tests 09/14/16 0625: CBC w Diff NO MAN DIFF REQ, RBC 3.96 L, MCV 95.2 H, MCH 32.5 H, RDW 14.0, MPV 7.5, Gran % 61.2, Lymphocytes % 26.8, Monocytes % 10.9 H, Eosinophils % 0.6, Basophils % 0.5, Absolute Granulocytes 4.7, Absolute Lymphocytes 2.1, Absolute Monocytes 0.8 H, Absolute Eosinophils 0, Absolute Basophils 0, PUBS MCHC 34.1 Assessment/Plan Assessment: Patient is saturating well on room air and has clinically improving community- acquired pneumonia while on intravenous ceftriaxone. He remains afebrile with resolution of his leukocytosis. Positive blood culture yesterday was determined to be coagulase-negative daff, likely parts sales representative of a contaminant. Patient is to be discharged to home today under the care of his family with an oral antibiotic course 7 days in duration. He is to follow-up with his primary care provider within 2 weeks of discharge. Community-acquired pneumonia/sepsis Patient with a history of Down syndrome requiring aid with activities daily living seen for evaluation of cough and fever. Patient met criteria for sepsis in the ED with temp 102.1, HR 106-108, WBC 23.0 with 12 bands and chest x-ray demonstrating a focus of opacification overlying the medial right lung base. Follow-up CT scan further demonstrated a wedge-shaped focus of opacification within the right middle lobe. Urinary strep pneumo antigen positive. Blood culture positive for gram-positive cocci in clusters in 1 bottle. Patient was given ceftriaxone/azithromycin in the ED. Azithromycin was discontinued after strep pneumo antigen returned positive. -Gen. medicine -Supplemental oxygen, goal >92%, taper as tolerated -TRC with albuterol when necessary -Ceftriaxone 1 g IV daily -Follow-up cultures and sensitivities Hypothyroidism-Synthroid 137 g by mouth daily Pain plan-acetaminophen Diet-regular diet (mechanical soft/thin) DVT prophylaxis-old Lovenox CODE STATUS-full code Problem List: 1. Community acquired pneumonia Pain Ratin Pain Location: None Pain Goal: Remain pain free Pain Plan: See assessment Tomorrow's Labs & Rationales: None NATIVIDAD NI MD 09/14/16 1129: Attending MD Review Statement Attending Statement Attending MD Statement: examined this patient, discuss w/resident/PA/SEMICONDUCTOR WAFERS MARKER, agreed w/resident/PA/SEMICONDUCTOR WAFERS MARKER, discussed with family, reviewed EMR data (avail), discussed with nursing, discussed with case mgmt, amended to note Attending Assessment/Plan: Patient seen and examined. Very jovial not in any distress. Family reports that his appetite was much better this morning. He tolerated noted no coughing or difficulty swallowing. He remains hemodynamically stable. On examination lungs remain clear to auscultation bilaterally. At this point he seems to be transition to oral antibiotic therapy to complete a total of 7 days course. Recommend outpatient chest x-ray in 2 weeks to ensure complete resolution of her pulmonary findings.
[2016-09-14 08:22] LABS: ABSOLUTE BASOPHIL COUNT 0 /CUMM (0.0-0.2); ABSOLUTE EOSINOPHIL COUNT 0 /CUMM (0.0-0.7); EOSINOPHIL % 0.6 % (0-5); PLATELET COUNT 336 /CUMM (130-400)
[2016-09-14 08:51] LABS: ABSOLUTE GRANULOCYTE CT 4.7 /CUMM (1.4-6.5); ABSOLUTE LYMPH COUNT 2.1 /CUMM (1.2-3.4); ABSOLUTE MONOCYTE COUNT 0.8 /CUMM (0.10-0.60); BASOPHIL % 0.5 % (0.0-2.0); GRANULOCYTE % 61.2 % (42.2-75.2); HEMATOCRIT 37.7 % (42-52); MEAN CORPUSCULAR HGB 32.5 PG (27.0-31.0); MEAN CORPUSCULAR HGB CONC 34.1 G/DL (33.0-37.0); MEAN CORPUSCULAR VOLUME 95.2 FL (80.0-94.0); MEAN PLATELET VOLUME 7.5 FL (7.4-10.4); RED BLOOD CELL CT 3.96 /CUMM (4.70-6.10)
[2016-09-14 08:58] LABS: WHITE BLOOD CELL COUNT 7.7 /CUMM (4.8-10.8)
[2016-09-14] MEDS ORDERED: AMOXICILLIN875 M1 PO (10:21)
--- NOTE | 2016-09-14 10:23 | Patient Discharge Instructions ---
Discharge Instructions General Discharge Information Special Instructions: Take amoxicillin as directed. Follow up with your primary care provider after discharge. Continue your home medications. Follow-up with primary care provider for repeat chest x-ray in 2 weeks. Acute Coronary Syndrome Inclusion Criteria At DC or during hospital stay patient has or had the following: ACS DIAGNOSIS No Discharge Core Measures Meds if any: Prescribed or Continued at Discharge Meds if any: NOT Prescribed or Continued at Discharge Congestive Heart Failure Inclusion Criteria At DC or during hospital stay patient has or had the following: CHF DIAGNOSIS No Discharge Core Measures Meds if any: Prescribed or Continued at Discharge Meds if any: NOT Prescribed or Continued at Discharge Cerebrovascular accident Inclusion Criteria At DC or during hospital stay patient has or had the following: CVA/TIA Diagnosis No Discharge Core Measures Meds if any: Prescribed or Continued at Discharge Meds if any: NOT Prescribed or Continued at Discharge Venous thromboembolism Inclusion Criteria VTE Diagnosis No VTE Type NONE VTE Confirmed by (Test) NONE Discharge Core Measures - Per Current guidelines, there needs to be overlap - treatment for the first 5 days of Warfarin therapy. - If discharged on Warfarin prior to 5 days of - overlap therapy, the patient will need to be - assessed for post discharge needs including - *Post discharge parental anticoagulation - *Warfarin and/or parental anticoagulation education - *Follow up date to check INR post discharge At least 5 days overlap therapy as Inpatient No Meds if any: Prescribed or Continued at Discharge Note: Overlap Therapy is Warfarin and Anticoagulant Meds if any: NOT Prescribed or Continued at Discharge
[2016-09-14 11:34] VITALS: BP 100/78
--- NOTE | 2016-09-18 08:32 | Discharge Summary ---
Visit Information Visit Dates Admission Date: 09/12/16 Discharge Date: 09/14/16 Hospital Course Course Attending Physician: Kiet Valentino MD Primary Care Physician: PATIENT HAS NO PRIMARY CARE DR Hospital Course: 45 year old man with significant past medical history of Downs syndrome, mental retardation, dysphagia, any hypothyroidism seen for evaluation of fever and cough. Community-acquired pneumonia/sepsis Patient with a history of Down syndrome requiring aid with activities daily living seen for evaluation of cough and fever. Patient met criteria for sepsis in the ED with temp 102.1, HR 106-108, WBC 23.0 with 12 bands and chest x-ray demonstrating a focus of opacification overlying the medial right lung base. Follow-up CT scan further demonstrated a wedge-shaped focus of opacification within the right middle lobe. Urinary strep pneumo antigen positive. Blood culture positive for gram-positive cocci in clusters in 1 bottle. Patient was given ceftriaxone/azithromycin in the ED. Azithromycin was discontinued after strep pneumo antigen returned positive. Patient was discharged on oral amoxicillin to complete a 7 day total antibiotic course. Allergies: Coded Allergies: NO KNOWN ALLERGIES (05/13/13) Significant Procedures: SERVICE DATE: 09/12/16 EXAM TYPE: CAT - CT ABD & PELVIS W IV CONTRAST IMPRESSION: Limited examination secondary to patient motion; however, no evidence for significant acute abdominal or pelvic inflammatory or infectious processes. There is equivocal urinary bladder wall thickening. Consider correlation with urinalysis. Partially visualized is a wedge-shaped focus of opacification within the right middle lobe. This could correspond to atelectasis or a developing infiltrate, but is only partially included on the study. A subsequent chest radiograph was obtained. SERVICE DATE: 09/12/16 EXAM TYPE: RAD - XRY-CHEST XRAY, ONE VIEW ONLY IMPRESSION: Which a focus of opacification overlying the medial right lung base which could correspond to atelectasis or a developing infiltrate. Recommendation is for a followup chest series to be obtained following treatment and/or resolution of symptoms to assure resolution of this appearance. Disposition Summary Disposition Principal Diagnosis: Community Acquired Pneumonia Additional Diagnosis: Sepsis Discharge Disposition: home or self care Discharge Instructions General Discharge Information Code Status: Full Code Patient's Diet: Regular Diet Patient's Activity: Full activity as tolerated Follow-Up Instructions/Appts: Take amoxicillin as directed. Follow up with your primary care provider after discharge. Continue your home medications. Follow-up with primary care provider for repeat chest x-ray in 2 weeks. Medications at Discharge Discharge Medications: Continue taking these medications: Levothyroxine Sodium (Synthroid) 137 MCG TABLET 1 Tablet ORAL DAILY Qty = 30 Comments: Last Taken: 09/14/16 Time: 6 am Start taking the following new medications: Amoxicillin (Amoxicillin) 875 MG TABLET 1 Tablet ORAL TWICE DAILY Qty = 8 No Refills Instructions: STARTING 09/15/16 Comments: NOT GIVEN. FIRST DOSE TO BE GIVEN 09/15/16 IN AM. Copies To: NATIVIDAD VALENTINO M.D Attending MD Review Statement Documenting Attending: NATIVIDAD VALENTINO M.D Other Findings: Patient is medically stable to be discharged
== END 2016-09-14 12:33 | disposition home health service (06) | DRG 871 ==
LOC: ENRESERVDT → ENRESERVTM → ERH 01:21 → ERHI 04:12 → 2NA 04:12 → ENPENDDIS 04:12 → 2NA 07:31
PROVIDERS: Emergency Medicine; Internal Medicine Interventional Cardiology; ADMIT Internal Medicine
DX: A41.9 Sepsis, unspecified organism (principal); J18.9 Pneumonia, unspecified organism; Q90.9 Down syndrome, unspecified; F79 Unspecified intellectual disabilities; E03.9 Hypothyroidism, unspecified; L40.9 Psoriasis, unspecified
CPT/HCPCS: 2NAP; 36415; 74177; 81001; 82436; 87040; 87070; 87147; 87449; 87450; 87804; 87804-59; 93005; 93010; 96361; 96374; 96375; J0131; J0456; J0696; J1650; J2405; J7040

== ENCOUNTER 2017-06-28 21:35 | Inpatient (IN) | payer OTHER, MEDICARE ==
[~2017-06-28] VITALS: Ht 149.9 cm; Wt 45.9 kg
[~2017-06-28 21:35] MED LIST changes: +AMOXICILLIN875 M1 PO; +SYNTHROID137 MCG PO
--- NOTE | 2017-06-28 23:43 | ED DYSPNEA/ASTHMA COMPLAINT ---
History of Present Illness General Chief Complaint: General Adult Stated Complaint: BIBA WITH HAS A HIGH FEVER Source: patient, family Exam Limitations: physical impairment Vital Signs & Intake/Output Vital Signs & Intake/Output ED Intake and Output 07/02 0000 07/01 1200 Intake Total 910 240 Output Total 750 Balance 160 240 Intake, IV 10 Intake, Oral 900 240 Number 0 1 Bowel Movements Output, Urine 750 Patient 101 lb Weight Allergies Coded Allergies: NO KNOWN ALLERGIES (05/13/13) Reconcile Medications Amoxicillin/Potassium Clav (Augmentin 875-125 Tablet) 875 MG-125 MG TABLET 1 TAB PO BID pneumonia Levothyroxine Sodium (Synthroid) 137 MCG TABLET 1 TAB PO DAILY HYPOTHYROIDISM (Reported) Triage Note: PER FATHER VOMITTING STARTED AFTER DINNER, WAS OK YESTERDAY, DINNER ABOUT 7PM Triage Nurses Notes Reviewed? yes Onset: Abrupt Duration: day(s): (1), constant, continues in ED Timing: recent history Severity: moderate, severe Activities at Onset: none HPI: 46-year-old male comes into the emergency room for further evaluation of cough fever chills congestion. Symptoms going on for the past day. History is very limited secondary to patient having a history of Down syndrome. Family members report that the patient started to feel hot tonight and did not have an appetite was not eating dinner. He has had a cough all day. Associated upper respiratory runny nose and congestion. He has a history of pneumonia and has been admitted previously. They bring him in for further evaluation. Past History Travel History Traveled to [place] past 21 day No Medical History Any Pertinent Medical History? see below for history Neurological: DOWN SYNDROME EENT: NONE Cardiovascular: NONE Respiratory: pneumonia Gastrointestinal: NONE Hepatic: NONE Renal: NONE Musculoskeletal: NONE Psychiatric: NONE Endocrine: hypothyroidism Blood Disorders: NONE Cancer(s): NONE SUPERVISOR RUBBER COVERING/Reproductive: NONE Other Medical Hx: Down's syndrome History of MRSA: No History of VRE: No History of CDIFF: No Surgical History Surgical History: none Psychosocial History Who do you live with Family What is your primary language Brazilian Tobacco Use: Never used Family History Family History, If Any: MOTHER Relation not specified for: FH: asthma FH: emphysema Hx Contributory? No Review of Systems Review of Systems Constitutional: Reports: see HPI. EENTM: Reports: no symptoms. Respiratory: Reports: see HPI. Cardiovascular: Reports: no symptoms. GI: Reports: no symptoms. Genitourinary: Reports: no symptoms. Musculoskeletal: Reports: no symptoms. Skin: Reports: no symptoms. Neurological/Psychological: Reports: no symptoms. Hematologic/Endocrine: Reports: no symptoms. Immunologic/Allergic: Reports: no symptoms. All Other Systems: Reviewed and Negative Physical Exam Physical Exam General Appearance: no apparent distress, alert, awake Head: atraumatic, normal appearance Eyes: Bilateral: normal appearance. Ears, Nose, Throat: normal ENT inspection, nasal discharge Neck: normal inspection Respiratory: no respiratory distress, decreased breath sounds Cardiovascular: regular rate/rhythm Extremities: normal inspection Neurologic/Psych: awake, alert, oriented x 3 Skin: intact, normal color Core Measures ACS in differential dx? No CVA/TIA Diagnosis No Sepsis Present: Yes Sepsis Focused Exam Completed? No Progress Differential Diagnosis: asthma, bronchitis, pneumonia, pneumothorax, influenza Plan of Care: Orders Procedure Date/time Status LACTIC ACID 06/29 0243 Active EKG 06/29 0057 Active BLOOD CULTURE 06/28 2343 Active LACTIC ACID 06/28 2343 Active COMPREHENSIVE METABOLIC PANEL 06/28 2343 Active CBC WITHOUT DIFFERENTIAL 06/28 2343 Active RAPID VIRAL INFLUENZA A 06/28 2313 Complete Current Medications Sig/Germán Start time Last Medication Dose Stop Time Status Admin Acetaminophen 1,000 MG ONCE ONE 06/29 0115 UNVr 06/29 (Ofirmev) 06/29 0129 0117 N/A 1 UNIT (No Carrier) Azithromycin 500 MG ONCE ONE 06/29 0100 AC 06/29 (Zithromax) 06/29 0159 0114 Dextrose/Water 250 ML (D5W) Sodium Chloride 0 ONCE ONE 06/29 0100 UNir 06/29 (Normal Saline 0.9%) 06/29 0101 0106 Laboratory Tests 06/29/17 0012: Sodium Pending, Potassium Pending, Chloride Pending, Carbon Dioxide Pending, Anion Gap Pending, BUN Pending, Creatinine Pending, BUN/Creatinine Ratio Pending , Glucose Pending, Lactic Acid Pending, Calcium Pending, Total Bilirubin Pending , AST Pending, ALT Pending, Alkaline Phosphatase Pending, Total Protein Pending, Albumin Pending, Globulin Pending, Albumin/Globulin Ratio Pending, CBC w Diff MAN DIFF ORDERED, WBC Pending, RBC Pending, Hgb Pending, Hct Pending, MCV Pending, MCH Pending, MCHC Pending, RDW Pending, Plt Count Pending, MPV Pending, Gran % Pending, Lymphocytes % Pending, Monocytes % Pending, Eosinophils % Pending, Basophils % Pending, Absolute Granulocytes Pending, Segmented Neutrophils Pending, Absolute Lymphocytes Pending, Absolute Monocytes Pending, Absolute Eosinophils Pending, Absolute Basophils Pending Microbiology 06/29 0021 BLOOD: Blood Culture - RECD 06/29 0012 BLOOD: Blood Culture - RECD 06/28 2320 NASOPHARYN: Influenza Virus A & B Rapid Smear - COMP Diagnostic Imaging: Viewed by Me: Radiology Read. Discussed w/RAD: Radiology Read. Radiology Impression: PATIENT: CARLOS MUSTAFA PRESENT AGE: 46 PATIENT ACCOUNT NO: [id number] : 68 LOCATION: [facility] ORDERING PHYSICIAN: Ketan JOE SERVICE DATE: 06/28/17 EXAM TYPE: RAD - XRY-CHEST XRAY, TWO VIEWS EXAMINATION: XR CHEST CLINICAL INFORMATION: Cough, fever COMPARISON: 09/12/2016 TECHNIQUE: 2 views of the chest were obtained. FINDINGS: There is a region of airspace opacity at the right lung base laterally , partially silhouetting the right hemidiaphragm on the frontal view. The left lung appears clear. No evidence of pneumothorax or significant pleural effusion. The cardiomediastinal contour is unremarkable. No acute osseous findings are seen. IMPRESSION: Right basilar airspace opacity suspicious for pneumonia. Radiographic followup after treatment/resolution of symptoms is recommended. DICTATED BY: Alireza Hobbs MD DATE/TIME DICTATED:06/29/1755 HOGSHEAD DUMPER:ARMEN DATE/TIME TRANSCRIBED:06/29/1755 CONFIDENTIAL, DO NOT COPY WITHOUT APPROPRIATE AUTHORIZATION. <Electronically signed in Other Vendor System> SIGNED BY: Alireza Hobbs MD 06/29/17 0100 Initial ED EKG: normal sinus rhythm, rate (96) Departure Departure Disposition: STILL A PATIENT Condition: Stable Clinical Impression Primary Impression: Sepsis Secondary Impressions: Hypoxia, Right lower lobe pneumonia Referrals: Unknown (PCP/Family) Departure Forms: Customer Survey General Discharge Information Prescriptions: Current Visit Scripts Amoxicillin/Potassium Clav (Augmentin 875-125 Tablet) 1 TAB PO BID #14 TAB Admission Note Spoke With: Veronica Webster MD Documentation of Exam: Documentation of any treatments & extenuating circumstances including Concerns Regarding Discharge (functional status, medication knowledge or non-compliance, living conditions, etc.) that warrant an admission rather than observation: Patient will require supplemental oxygen. IV antibiotics. Patient's oxygen saturation is 89-90% on room air. He is febrile /tachycardic. Critical Care Note Critical Care Note Critical Care Time: 30-74 min (45)
[2017-06-29 00:35] LABS: ABSOLUTE BASOPHIL COUNT 0 /CUMM (0.0-0.2); ABSOLUTE EOSINOPHIL COUNT 0 /CUMM (0.0-0.7); ABSOLUTE GRANULOCYTE CT 16.7 /CUMM (1.4-6.5); ABSOLUTE MONOCYTE COUNT 2.3 /CUMM (0.10-0.60); BASOPHIL % 0 % (0.0-2.0); EOSINOPHIL % 0 % (0-5); GRANULOCYTE % 79.4 % (42.2-75.2); HEMATOCRIT 40.6 % (42-52); MEAN CORPUSCULAR HGB 31.7 PG (27.0-31.0); MEAN CORPUSCULAR HGB CONC 34.1 G/DL (33.0-37.0); MEAN CORPUSCULAR VOLUME 93.1 FL (80.0-94.0); MEAN PLATELET VOLUME 6.7 FL (7.4-10.4); PLATELET COUNT 293 /CUMM (130-400); RBC DISTRIBUTION WIDTH 13.6 % (11.5-14.5); RED BLOOD CELL CT 4.37 /CUMM (4.70-6.10); WHITE BLOOD CELL COUNT 21.1 /CUMM (4.8-10.8)
--- NOTE | 2017-06-29 01:00 | RADIOLOGY REPORT ---
EXAMINATION: XR CHEST CLINICAL INFORMATION: Cough, fever COMPARISON: 09/12/2016 TECHNIQUE: 2 views of the chest were obtained. FINDINGS: There is a region of airspace opacity at the right lung base laterally, partially silhouetting the right hemidiaphragm on the frontal view. The left lung appears clear. No evidence of pneumothorax or significant pleural effusion. The cardiomediastinal contour is unremarkable. No acute osseous findings are seen. IMPRESSION: Right basilar airspace opacity suspicious for pneumonia. Radiographic followup after treatment/resolution of symptoms is recommended.
--- NOTE | 2017-06-29 02:35 | History & Physical ---
Brennan MILLER,[facility] 06/29/17 0234: General Information and HPI MD Statement: I have seen and personally examined CARLOS MUSTAFA and documented this H&P. The patient is a 46 year old M who presented with a patient stated chief complaint of [fever, not feeling self]. Source of Information: family Exam Limitations: unable to give history History of Present Illness: The patient is 46-year-old gentleman with past medical history of Down syndrome and hypothyroidism. He presented to [place] ED on 06/29 with complaint of fever, vomiting, cough. He was in his usual state of health until this morning. He went to his work training program where he goes everyday for learning basic life skills. A lot of people in the programs including his assistant track and field coach were sick with flulike illness. The patient came home from his program and was fine. At dinnertime he stopped eating. His brother checked him and felt he was hot running a temperature of 100.9. After that patient had one episode of vomiting. These events prompted a visit to [place] ED. In ED the patient had an episode of vomiting. He has been having cough ever since the episodes of vomiting. Patient is nonverbal at baseline. Most history was obtained over the phone by talking to his brother. As per family patient is independent, walks by himself and uses the bathroom by himself. Family cuts his food into small pieces. He doesn't have all of teeth, but as per brother he chews fine if the food is in small pieces. There are no episodes of choking or gagging. Brother and his are the primary caretakers. They do not have any home health services. ROS unobtainable Allergies/Medications Allergies: Coded Allergies: NO KNOWN ALLERGIES (05/13/13) Home Med list Levothyroxine Sodium (Synthroid) 137 MCG TABLET 1 TAB PO DAILY HYPOTHYROIDISM (Reported) Past History Travel History Traveled to [place] past 21 day No Medical History Neurological: DOWN SYNDROME EENT: NONE Cardiovascular: NONE Respiratory: pneumonia Gastrointestinal: NONE Hepatic: NONE Renal: NONE Musculoskeletal: NONE Psychiatric: NONE Endocrine: hypothyroidism Blood Disorders: NONE Cancer(s): NONE STAFFING ANALYST/Reproductive: NONE Other Medical Hx: Down's syndrome History of MRSA: No History of VRE: No History of CDIFF: No Surgical History Surgical History: none Past Family/Social History Family History Relations & Conditions if any MOTHER Relation not specified for: FH: asthma FH: emphysema Psychosocial History Where do you live? Home Who Do You Live With? brother and Services at Home: None Smoking Status: Never Smoked ETOH Use: denies use Illicit Drug Use: denies illicit drug use Functional Ability ADLs Independent: eating, toileting. Needs Assist: dressing, bathing. Ambulation: independent IADLs Needs Assist: shopping, housework, finances, food prep, telephone, transportation, medication admin. Review of Systems Review of Systems Constitutional: Reports: see HPI. Exam & Diagnostic Data Last 24 Hrs of Vital Signs/I&O Vital Signs Date Time Temp Pulse Resp B/P B/P Pulse O2 O2 Flow FiO2 Mean Ox Delivery Rate 06/29 0343 96.9 70 20 101/59 94 Nasal 2.0L Cannula 06/29 0300 74 98/52 06/29 0117 100.5 06/29 0023 100.6 70 20 100/54 90 Room Air 06/28 2140 100.5 120 20 122/67 94 Intake & Output 06/29 0800 06/29 0000 06/28 1600 Intake Total 0 Output Total Balance 0 Intake, Oral 0 Physical Exam General Appearance Cooperative, No Acute Distress HEENT Atraumatic Cardiovascular Normal S1, Normal S2, systolic murmur Lungs decreased breath sounds Abdomen Normal Bowel Sounds, Soft Neurological non verberal at baseline Extremities No Edema Last 24 Hrs of Labs/Jona: Laboratory Tests 06/29/17 0243: Lactic Acid Cancelled 06/29/17 0012: Anion Gap 12, Estimated GFR > 60, BUN/Creatinine Ratio 17.8, Glucose 114 H, Lactic Acid 1.0, Calcium 8.7, Total Bilirubin 0.8, AST 31, ALT 35, Alkaline Phosphatase 95, Total Protein 7.4, Albumin 3.7, Globulin 3.7, Albumin/Globulin Ratio 1.0 L, CBC w Diff MAN DIFF ORDERED, RBC 4.37 L, MCV 93.1, MCH 31.7 H, MCHC 34.1, RDW 13.6, MPV 6.7 L, Gran % 79.4 H, Lymphocytes % 9.5 L, Monocytes % 11.1 H, Eosinophils % 0, Basophils % 0, Absolute Granulocytes 16.7 H, Segmented Neutrophils 73, Band Neutrophils 6 H, Absolute Lymphocytes 2.0, Lymphocytes 8 L, Monocytes 13 H, Absolute Monocytes 2.3 H, Absolute Eosinophils 0, Absolute Basophils 0, Platelet Estimate ADEQUATE, Normocytic RBCs VERIFIED, Normochromic RBCs VERIFIED Microbiology 06/29 025 LOWER RESP: Respiratory Culture - ORD 06/29 251 LOWER RESP: Gram Stain - ORD 06/29 248 URINE ROUT: Legionella Antigen - ORD 06/29 248 URINE ROUT: Streptococcus pneumoniae Antigen (M - ORD 06/29 0021 BLOOD: Blood Culture - RECD 06/29 0012 BLOOD: Blood Culture - RECD 06/28 2320 NASOPHARYN: Influenza Virus A & B Rapid Smear - COMP Diagnostic Data CXR Results FINDINGS: There is a region of airspace opacity at the right lung base laterally, partially silhouetting the right hemidiaphragm on the frontal view. The left lung appears clear. No evidence of pneumothorax or significant pleural effusion. The cardiomediastinal contour is unremarkable. No acute osseous findings are seen. IMPRESSION: Right basilar airspace opacity suspicious for pneumonia. Radiographic followup after treatment/resolution of symptoms is recommended. Assessment/Plan Assessment: The patient is 46-year-old gentleman with past medical history of Down syndrome and hypothyroidism. He presented to [place] ED on 06/29 with complaint of fever, vomiting, cough -VS 100.5, 120, 20, 122/67, 94% -Pertinent labs WBC count 12.1 with 6 bands. Rapid flu negative -Imaging findings dictated above In ED patient received 1 L of normal saline, ceftriaxone and azithromycin. His oxygen saturation was 90% on room air and he was put on 2 L NC -The patient is being admitted to general medicine floor and was being evaluated and treated for following conditions #Sepsis secondary to Community-acquired pneumonia The patient is presenting with fever of 100.5 white count 12.1 and bands 6. Chest x-ray is consistent with right bibasilar airspace opacity suspicious for pneumonia. History of positive sick contacts. The patient meets SIRS criteria. We are going to treat him for sepsis secondary to community-acquired pneumonia however aspiration pneumonia is also a possibility -Monitor fever WBC curve -Oxygen supplementation to maintain oxygen saturation above 92% -Urinary legionella and strep antigen -Follow up blood cultures -Sputum culture if any -Continue ceftriaxone and azithromycin -Consider swallow evaluation #Hypothyroidism: Continue levothyroxine #Full code/DVT prophylaxis with Lovenox/chopped diet As Ranked By This Provider Problem List: 1. Community acquired pneumonia 2. Sepsis Core Measures/Misc (02/18) Acute Coronary Syndrome ACS Diagnosis: No Congestive Heart Failure Congestive Heart Failure Diagnosis No Cerebrovascular Accident CVA/TIA Diagnosis: No VTE (View Protocol) VTE Risk Factors Age>40 No Mechanical VTE Prophylaxis d/t N/A MechProphylax Ordered No VTE Pharm Prophylaxis d/t NA PharmProphylax ordered Sepsis (View protocol) Sepsis Present: Yes Juanito Rg 06/29/17 0400: Resident Review Statement Resident Statement: discussed with seo intern Other Findings: 46-year-old man with past medical history of Down syndrome, mentally challenged, hypothyroidism, history of pneumococcal pneumonia brought into ER by family with complaint of cough, fever 100.9, and poor appetite. There is also history of one episode of vomiting. History of positive sick contacts. It's difficult to obtain history from patient given Down syndrome and mental retardation. Vitals on admission: Temperature 100.5, pulse 120, respiratory rate 20, blood pressure 122/67 and oxygen saturation 90% on room air. He was put on 2 L of oxygen via nasal cannula. Pertinent physical exam findings: Systolic murmur grade 2-3/6, decreased breath sounds bilaterally. No pedal edema. Pertinent labs: WBC count 12.1 with 6 bands. Rapid flu negative Chest x-ray showed right basilar airspace opacity suspicious for pneumonia. EKG: No acute ST-T wave changes In ER he was given normal saline, ceftriaxone and azithromycin. Assessment and plan 46-year-old man with past medical history of Down syndrome, mentally challenged, hypothyroidism, Hx of pneumococcal pneumonia is going to be admitted on general medicine floor due to sepsis secondary to community-acquired pneumonia. Monitor vitals closely. Continue supplemental oxygen for now and tapered it down to keep oxygen saturation more than 92%. Follow-up blood cultures 2 and sputum cultures. Urinary antigen for strep pneumo and legionella. Continue ceftriaxone and azithromycin. IV hydration. Continue levothyroxine. Pain management pathway. DVT prophylaxis. Regular diet. Full code. Darin MILLER, [facility] 06/29/17 0512: Attending MD Review Statement Attending Statement Attending MD Statement: examined this patient, discuss w/resident/PA/NEEDLE SETTER, agreed w/resident/PA/NEEDLE SETTER, reviewed images, amended to note Attending Assessment/Plan: 46 yo M with Down's syndrome, MR, hypothyroidism, is brought in by family for fever, vomiting and poor appetite that started soon after he returned from his basic skills program yesterday evening. As per history provided by patient's brother, there were quite a few members at the program who had the 'flu'. Patient is nonverbal and does not provide any history. Vitals: Tmax 100.6, HR 70-120, BP 108/60, sats 90% RA --> 98% on 2L. Exam: lethargic, but arousable although nonverbal. Ill appearing male, has dry mucous membranes, Neck supple, Skin warm and dry. Chest bibasilar rhonchi (R>L), Heart S1S2 regular, systolic murmur+. Labs: WBC 21.1, bands 6, glucose 114, lactic acid 1.0. CXR: right basilar airspace opacity suspicious for pneumonia. Assessment and plan: 1. Acute hypoxic respiratory failure 2. Sepsis 3. Community acquired pneumonia RLL 4. Down's syndrome - Admit to general medicine - TRC nebs - Panculture, urine legionella and strep Ag - IV ceftriaxone and azithro - IV fluids - NPO for now, check swallow eval when more alert prior to resuming diet - Resume levothyroxine DVT ppx Lovenox. Full code.
[2017-06-29 04:25] VITALS: BP 108/60
--- NOTE | 2017-06-29 05:03 | Admission Certification ---
Admission Certification Certification Statement - As attending physician, I certify that at the time of - admission, based on clinical presentation, severity of - symptoms, need for further diagnostic testing and - therapeutic interventions, and risk of adverse outcomes - without in-hospital treatment, in my clinical assessment, - this patient requires an acute hospital stay for a minimum - of two nights or longer. I have also considered psychsocial - factors such as support system, advanced age, financial - issues, cognitive issues, and failed out-patient treatments, - past re-admission history, safety of patient, and lack of - compliance as applicable. Specific rationale supporting this admission is: Sepsis, acute hypoxic respiratory failure, right lower lobe pneumonia - community acquired.
[2017-06-29 06:50] VITALS: BP 110/58
--- NOTE | 2017-06-29 07:19 | PN- Housestaff ---
Marshall MILLER,Olga 06/29/17 0719: Subjective Follow-up For: 1. Acute hypoxic respiratory failure 2. Sepsis 3. Community acquired pneumonia RLL 4. Down's syndrome Subjective: Patient is seen and examined at bedside, he is not able to provide complaints, only points to his right eye said it hurts, denies other complaints Review of Systems Constitutional: Denies: no symptoms. Cardiovascular: Denies: no symptoms. Respiratory: Denies: no symptoms. Gastrointestinal: Denies: no symptoms. Musculoskeletal: Denies: no symptoms. Skin: Denies: no symptoms. Objective Last 24 Hrs of Vital Signs/I&O Vital Signs Date Time Temp Pulse Resp B/P B/P Pulse O2 O2 Flow FiO2 Mean Ox Delivery Rate 06/29 0650 98.0 68 20 110/58 97 06/29 0425 97.8 67 20 108/60 97 06/29 0407 Nasal 2.0L Cannula 06/29 0343 96.9 70 20 101/59 94 Nasal 2.0L Cannula 06/29 0300 74 98/52 06/29 0117 100.5 06/29 0023 100.6 70 20 100/54 90 Room Air 06/28 2140 100.5 120 20 122/67 94 Intake & Output 06/29 1600 06/29 0800 06/29 0000 Intake Total 240 0 Output Total Balance 240 0 Intake, Oral 240 0 Patient 102 lb Weight Weight Bed scale Measurement Method Physical Exam General Appearance: Alert, Cooperative HEENT: Atraumatic, PERRLA, EOMI, whitish mucoid eye discharge Neck: Supple, No JVD Cardiovascular: Normal S1, Normal S2, No Murmurs Lungs: rales and wheezes on the right side Abdomen: Normal Bowel Sounds, Soft, No Tenderness Neurological: Normal Speech, Strength at 5/5 X4 Ext, Normal Tone Extremities: No Clubbing, No Cyanosis, No Edema Current Medications: Current Medications Sig/Germán Start time Last Medication Dose Route Stop Time Status Admin Acetaminophen 650 MG Q8P PRN 06/29 0300 AC PO Acetaminophen 0 .STK-MED ONE 06/29 0120 DC IV Acetaminophen 1,000 MG ONCE ONE 06/29 0115 DC 06/29 N/A 1 UNIT IV 06/29 128 0117 Azithromycin 500 MG DAILY@0100 06/30 010 AC Dextrose/Water 250 ML IV Azithromycin 500 MG ONCE ONE 06/29 99 DC 06/29 Dextrose/Water 250 ML IV 06/29 0159 0114 Ceftriaxone Sodium 1,000 MG DAILY@0 06/30 0100 AC IV Ceftriaxone Sodium 0 .STK-MED ONE 06/29 0112 DC .ROUTE Ceftriaxone Sodium 1,000 MG ONCE ONE 06/29 99 DC 06/29 IV 06/29 100 0114 Enoxaparin Sodium 40 MG DAILY 06/29 1000 AC SC Levothyroxine Sodium 0.137 MG DAILY AC 06/29 0700 AC PO Polymyxin/ 1 GTT TID 06/29 1045 AC Trimethoprim Sulfate OPH Sodium Chloride 1,000 ML Q13H 06/29 0330 AC 06/29 IV 06/30 05 0346 Sodium Chloride 1,000 ML ONCE ONE 06/29 99 DC 06/29 IV 06/29 100 010 Last 24 Hrs of Lab/Jona Results Last 24 Hrs of Labs/Mics: Laboratory Tests 06/29/17 0243: Lactic Acid Cancelled 06/29/17 0012: Anion Gap 12, Estimated GFR > 60, BUN/Creatinine Ratio 17.8, Glucose 114 H, Lactic Acid 1.0, Calcium 8.7, Total Bilirubin 0.8, AST 31, ALT 35, Alkaline Phosphatase 95, Total Protein 7.4, Albumin 3.7, Globulin 3.7, Albumin/Globulin Ratio 1.0 L, CBC w Diff MAN DIFF ORDERED, RBC 4.37 L, MCV 93.1, MCH 31.7 H, MCHC 34.1, RDW 13.6, MPV 6.7 L, Gran % 79.4 H, Lymphocytes % 9.5 L, Monocytes % 11.1 H, Eosinophils % 0, Basophils % 0, Absolute Granulocytes 16.7 H, Segmented Neutrophils 73, Band Neutrophils 6 H, Absolute Lymphocytes 2.0, Lymphocytes 8 L, Monocytes 13 H, Absolute Monocytes 2.3 H, Absolute Eosinophils 0, Absolute Basophils 0, Platelet Estimate ADEQUATE, Normocytic RBCs VERIFIED, Normochromic RBCs VERIFIED Microbiology 06/29 809 URINE ROUT: Legionella Antigen - COMP 06/29 809 URINE ROUT: Streptococcus pneumoniae Antigen (M - COMP STREP PNEUMO BACTERIAL AG 06/29 251 LOWER RESP: Respiratory Culture - COLB 06/29 251 LOWER RESP: Gram Stain - COLB 06/29 20 BLOOD: Blood Culture - RECD 06/29 11 BLOOD: Blood Culture - RECD 06/28 2030 NASOPHARYN: Influenza Virus A & B Rapid Smear - COMP Assessment/Plan Assessment: 46-year-old gentleman with past medical history of Down syndrome and hypothyroidism. Presented to [facility] with chief complaint of fever, vomiting and cough, patient had many recent sick contacts in that program where he goes for training every day. On admission he had a low-grade fever, leukocytosis with bandemia, pulse ox was 90% on room air, chest x-ray showed right basilar airspace opacity which might be due to CAP versus aspiration .this morning he was pointing to his right eye which was noticed to have whitish discharge most likely due to conjunctivitis #Acute hypoxic respiratory failure secondary to CAP/Sepsis On admission the patient met 3 criteria of sepsis Urine was positive for strep pneumonia Continue to follow on the general medicine floor . TRC/NEBS, mucinex continue IV ceftriaxone DC Azithromycin IV fluids Follow-up on blood culture, LRC #History of Hypothyroidism: Continue home dose of levothyroxine 137 g #Conjunctivitis Patient complaint of eye pain and mucoid eye discharge Polytrim eye drops 3 times a day for [address] Mcclellan recommendation( discussed over the phone) Full code Regular diet, chopped with thin liquids DVT prophylaxis with subcutaneous Lovenox Problem List: 1. Right lower lobe pneumonia 2. Sepsis Pain Ratin Pain Location: N/A Pain Goal: Remain pain free Pain Plan: pathway Tomorrow's Labs & Rationales: cbc bep DVT/Prophylaxis: mechanical, pharmacological Lorie Whitaker MD 06/29/17 1144: Attending MD Review Statement Attending Statement Attending MD Statement: examined this patient, discuss w/resident/PA/GROUNDS MAINTENANCE WORKER, agreed w/resident/PA/GROUNDS MAINTENANCE WORKER, reviewed EMR data (avail) Attending Assessment/Plan: 46M PMH Down's syndrome, MR, hypothyroidism admitted overnight for fatigue, fever, poor appetite, found to have RLL pneumonia, with Strep pneumo antigen positive, with WBC 21. Non-verbal, unable to assess history, appears ill but stable. 1. Pneumococcal RLL pneumonia Plan - Continue on general medicine - Continue Ceftriaxone - Discontinue Azithromycin - Follow cultures - Continue home medications - DVT PPx
--- NOTE | 2017-06-29 11:05 | Patient Discharge Instructions ---
Acute Coronary Syndrome Inclusion Criteria At DC or during hospital stay patient has or had the following: ACS DIAGNOSIS No Discharge Core Measures Meds if any: Prescribed or Continued at Discharge Meds if any: NOT Prescribed or Continued at Discharge Congestive Heart Failure Inclusion Criteria At DC or during hospital stay patient has or had the following: CHF DIAGNOSIS No Discharge Core Measures Meds if any: Prescribed or Continued at Discharge Meds if any: NOT Prescribed or Continued at Discharge Cerebrovascular accident Inclusion Criteria At DC or during hospital stay patient has or had the following: CVA/TIA Diagnosis No Discharge Core Measures Meds if any: Prescribed or Continued at Discharge Meds if any: NOT Prescribed or Continued at Discharge Venous thromboembolism Inclusion Criteria VTE Diagnosis No VTE Type NONE VTE Confirmed by (Test) NONE Discharge Core Measures - Per Current guidelines, there needs to be overlap - treatment for the first 5 days of Warfarin therapy. - If discharged on Warfarin prior to 5 days of - overlap therapy, the patient will need to be - assessed for post discharge needs including - *Post discharge parental anticoagulation - *Warfarin and/or parental anticoagulation education - *Follow up date to check INR post discharge At least 5 days overlap therapy as Inpatient No Meds if any: Prescribed or Continued at Discharge Note: Overlap Therapy is Warfarin and Anticoagulant Meds if any: NOT Prescribed or Continued at Discharge
[2017-06-29 14:55] VITALS: BP 120/72
[2017-06-29 23:00] VITALS: BP 105/82
[2017-06-30 07:01] VITALS: BP 93/62
[2017-06-30 08:08] VITALS: BP 102/68
--- NOTE | 2017-06-30 08:55 | PN- Housestaff ---
Chevy Potts 06/30/17 0846: Subjective Follow-up For: Acute hypoxic respiratory failure Sepsis CAP RLL Down's syndrome Subjective: No overnight events. Patient remained afebrile overnight. Seen and examined this morning. Patient is mentally retarded, nonverbal, not able to give history. He can just follow the commands. Patient having history of Down syndrome. Review of Systems Constitutional: Reports: see HPI. Objective Last 24 Hrs of Vital Signs/I&O Vital Signs Date Time Temp Pulse Resp B/P B/P Pulse O2 O2 Flow FiO2 Mean Ox Delivery Rate 06/30 0808 70 102/68 06/30 0701 97.6 69 18 93/62 94 Room Air 06/29 2330 99.4 06/29 2330 99.4 06/29 2300 101.0 95 18 105/82 94 Room Air 06/29 2142 101.0 06/29 1455 97.9 75 19 120/72 98 Room Air 06/29 1114 Room Air Room Air Intake & Output 06/30 1600 06/30 0800 06/30 0000 Intake Total 480 1320 Output Total 550 Balance 480 770 Intake, IV 600 Intake, Oral 480 720 Number 0 0 Bowel Movements Output, Urine 550 Physical Exam General Appearance: Alert, Cooperative Skin Temp/Moisture Exam: Warm/Dry Sepsis Skin Exam (color): Normal for Ethnicity HEENT: Atraumatic Neck: Supple Cardiovascular: Normal S1, Normal S2 Lungs: dECREASED BREATH SOUNDS B/L Abdomen: Soft, No Tenderness Neurological: Strength at 5/5 X4 Ext, Normal Tone Extremities: No Edema Assessment/Plan Assessment: 46-year-old gentleman with past medical history of Down syndrome and hypothyroidism. Presented to [facility] with chief complaint of fever, vomiting and cough, patient had many recent sick contacts in that program where he goes for training every day. On admission he had a low-grade fever, leukocytosis with bandemia, pulse ox was 90% on room air, chest x-ray showed right basilar airspace opacity which might be due to CAP versus aspiration .this morning he was pointing to his right eye which was noticed to have whitish discharge most likely due to conjunctivitis Acute hypoxic respiratory failure secondary to CAP/Sepsis: -On admission the patient admits 3 criteria of sepsis -Urine was positive for strep pneumonia -TRC/NEBS, mucinex -Continue IV ceftriaxone -IV fluids for hydration -Follow-up on blood culture, LRC History of Hypothyroidism: Continue home dose of levothyroxine 137 g Conjunctivitis: Patient complaint of eye pain and mucoid eye discharge Polytrim eye drops 3 times a day for [address] Mcclellan recommendation( discussed over the phone) CODE STATUS: Full code Regular diet, chopped with thin liquids DVT prophylaxis: -subcutaneous Lovenox Problem List: 1. Community acquired pneumonia Pain Ratin Pain Location: NONE Pain Goal: Remain pain free Pain Plan: TYLENOL FOR MILD PAIN Tomorrow's Labs & Rationales: CBC/BEP Lorie Whitaker MD 06/30/17 1228: Attending MD Review Statement Attending Statement Attending MD Statement: examined this patient, discuss w/resident/PA/MUSSEL FARMER, agreed w/resident/PA/MUSSEL FARMER, reviewed EMR data (avail) Attending Assessment/Plan: 46M PMH Down's syndrome, MR, hypothyroidism admitted overnight for fatigue, fever, poor appetite, found to have RLL pneumonia, with Strep pneumo antigen positive, with WBC 21. Non-verbal, unable to assess history, appears ill but stable. 1. Pneumococcal RLL pneumonia Plan - Continue on general medicine - Continue Ceftriaxone - Follow cultures - Continue home medications - DVT PPx
--- NOTE | 2017-06-30 08:56 | Discharge Summary ---
Visit Information Visit Dates Admission Date: 06/29/17 Discharge Date: 07/01/17 Hospital Course Course Attending Physician: Lorie Whitaker MD Primary Care Physician: Rosario MILLER, [facility] Course: 46-year-old gentleman with past medical history of Down syndrome and hypothyroidism. 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 On admission he had a low-grade fever, leukocytosis with bandemia, pulse ox was 90% on room air, chest x-ray showed right basilar airspace opacity which might be due to CAP versus aspiration, very lethargic on admission. #Acute hypoxic respiratory failure secondary to CAP/Sepsis On admission the patient met 3 criteria of sepsis Was treated on the general medicine floor . TRC/NEBRand, mucinex Initially he was treated with Azithromycin/Ceftriaxone, Streptoccocal urinary antigen was found to be positive, and Azithromycin was discontinued and he was treated with IV ceftriaxone alone. Patient's mental status improved with treatment until he was at his baseline. He remained afebrile, was eating and breathing well, and was eventually discharged on Augmentin to complete course. Blood culture: Negative LRC: Negative #History of Hypothyroidism: Was kept on home dose of levothyroxine 137 g #Conjunctivitis Patient complained of eye pain and mucoid eye discharge Was treated with Polytrim eye drops 3 times a day for [address] Mcclellan recommendation(discussed over the phone) Allergies: Coded Allergies: NO KNOWN ALLERGIES (05/13/13) Disposition Summary Disposition Principal Diagnosis: Community acquired pneumonia Additional Diagnosis: Hypothyroidism Down syndrom Discharge Disposition: home or self care Discharge Instructions General Discharge Information Code Status: Full Code Patient's Diet: regular diet Patient's Activity: As tolerated Follow-Up Instructions/Appts: 1- Please follow up with your PCP in 1 week of discharge Medications at Discharge Discharge Medications: Continue taking these medications: Levothyroxine Sodium (Synthroid) 137 MCG TABLET 1 Tablet ORAL DAILY Qty = 30 Comments: Last Taken: 07/01/17 Time: 6 am Start taking the following new medications: Amoxicillin/Potassium Clav (Augmentin 875-125 Tablet) 875 MG-125 MG TABLET 1 Tablet ORAL TWICE DAILY Qty = 14 No Refills Comments: NOT GIVEN IN HOSPITAL Copies To: Guillermo MILLER,[facility] Attending MD Review Statement Documenting Attending: Julianne MILLER,Lorie
[2017-06-30 09:01] LABS: ABSOLUTE BASOPHIL COUNT 0.1 /CUMM (0.0-0.2); ABSOLUTE EOSINOPHIL COUNT 0.1 /CUMM (0.0-0.7); ABSOLUTE GRANULOCYTE CT 11.8 /CUMM (1.4-6.5); ABSOLUTE LYMPH COUNT 2.6 /CUMM (1.2-3.4); ABSOLUTE MONOCYTE COUNT 1.4 /CUMM (0.10-0.60); BASOPHIL % 0.4 % (0.0-2.0); EOSINOPHIL % 0.3 % (0-5); HEMATOCRIT 38.4 % (42-52); MEAN CORPUSCULAR HGB 31.4 PG (27.0-31.0); MEAN CORPUSCULAR HGB CONC 32.7 G/DL (33.0-37.0); MEAN PLATELET VOLUME 6.9 FL (7.4-10.4); PLATELET COUNT 306 /CUMM (130-400); RBC DISTRIBUTION WIDTH 13.9 % (11.5-14.5); RED BLOOD CELL CT 3.99 /CUMM (4.70-6.10)
[2017-06-30 14:56] VITALS: BP 110/58
[2017-06-30 21:26] VITALS: BP 108/66
[2017-07-01 06:14] VITALS: BP 104/76
[2017-07-01 08:32] LABS: ABSOLUTE BASOPHIL COUNT 0.1 /CUMM (0.0-0.2); ABSOLUTE EOSINOPHIL COUNT 0.1 /CUMM (0.0-0.7); ABSOLUTE LYMPH COUNT 2.6 /CUMM (1.2-3.4); ABSOLUTE MONOCYTE COUNT 1.1 /CUMM (0.10-0.60); BASOPHIL % 0.7 % (0.0-2.0); EOSINOPHIL % 1.1 % (0-5); GRANULOCYTE % 60.5 % (42.2-75.2); HEMATOCRIT 40.2 % (42-52); MEAN CORPUSCULAR HGB 31.8 PG (27.0-31.0); MEAN CORPUSCULAR HGB CONC 33.6 G/DL (33.0-37.0); MEAN CORPUSCULAR VOLUME 94.8 FL (80.0-94.0); MEAN PLATELET VOLUME 6.9 FL (7.4-10.4); PLATELET COUNT 352 /CUMM (130-400); RBC DISTRIBUTION WIDTH 13.9 % (11.5-14.5); RED BLOOD CELL CT 4.24 /CUMM (4.70-6.10); WHITE BLOOD CELL COUNT 9.9 /CUMM (4.8-10.8)
--- NOTE | 2017-07-01 10:16 | PN- Housestaff ---
DelroyReece 07/01/17 1012: Subjective Follow-up For: Acute hypoxic respiratory failure Sepsis CAP RLL Down's syndrome Subjective: No overnight events. Patient remained afebrile overnight. Seen and examined this morning. Patient is mentally retarded, nonverbal, not able to give history. Patient having history of Down syndrome. Review of Systems Constitutional: Reports: see HPI. Objective Last 24 Hrs of Vital Signs/I&O Vital Signs Date Time Temp Pulse Resp B/P B/P Pulse O2 O2 Flow FiO2 Mean Ox Delivery Rate 07/01 0800 94 Room Air 07/01 0614 98.0 74 20 104/76 95 07/01 0000 Room Air 06/30 2126 96.9 70 18 108/66 96 Room Air 06/30 1600 Room Air 06/30 1456 97.3 84 20 110/58 94 Room Air Intake & Output 07/01 1600 07/01 0800 07/01 0000 Intake Total 240 900 Output Total 700 Balance 240 200 Intake, Oral 240 900 Number 1 Bowel Movements Output, Urine 700 Patient 101 lb Weight Physical Exam General Appearance: Alert, Cooperative Skin Temp/Moisture Exam: Warm/Dry Sepsis Skin Exam (color): Normal for Ethnicity HEENT: Atraumatic Neck: Supple Cardiovascular: Normal S1, Normal S2 Lungs: Decreased breath sounds b/l Abdomen: Soft, No Tenderness Neurological: Strength at 5/5 X4 Ext, Normal Tone Extremities: No Edema Assessment/Plan Assessment: 46-year-old gentleman with past medical history of Down syndrome and hypothyroidism. 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 On admission he had a low-grade fever, leukocytosis with bandemia, pulse ox was 90% on room air, chest x-ray showed right basilar airspace opacity which might be due to CAP versus aspiration .this morning he was pointing to his right eye which was noticed to have whitish discharge most likely due to conjunctivitis Acute hypoxic respiratory failure secondary to CAP/Sepsis: On admission the patient met 3 criteria of sepsis Urine was positive for strep pneumonia TRC/NEBS, mucinex continue IV ceftriaxone IV fluids Follow-up on blood culture, LRC History of Hypothyroidism: Continue home dose of levothyroxine 137 g Conjunctivitis: Patient complaint of eye pain and mucoid eye discharge Polytrim eye drops 3 times a day for [address] Mcclellan recommendation( discussed over the phone) CODE STATUS: Full code Regular diet, chopped with thin liquids DVT prophylaxis: -subcutaneous Lovenox Problem List: 1. Community acquired pneumonia Pain Ratin Pain Location: none Pain Goal: Remain pain free Pain Plan: pain pathway Tomorrow's Labs & Rationales: cbc/bep Lorie Whitaker MD 07/01/17 1325: Attending MD Review Statement Attending Statement Attending MD Statement: examined this patient, discuss w/resident/PA/EKG TECH, agreed w/resident/PA/EKG TECH, reviewed EMR data (avail) Attending Assessment/Plan: 46M PMH Down's syndrome, MR, hypothyroidism admitted overnight for fatigue, fever, poor appetite, found to have RLL pneumonia, with Strep pneumo antigen positive, with WBC 21, improved to 9. Patient is back to baseline, alert and walking around. He remains afebrile and is eating well. 1. Pneumococcal RLL pneumonia Plan - Stable for discharge - Augmentin for 1 week on discharge - Continue home medications
[2017-07-01] MEDS ORDERED: AUGMENTIN 875-1 EACH PO (11:14)
== END 2017-07-01 14:57 | DRG 871 ==
LOC: ERH 21:35 → ERHI 06-29 02:27 → 2NB 06-29 02:27 → ENRESERV 06-29 03:31 → 2NB 06-29 03:57 → ENPENDDIS 07-01 11:54 → ENTRNSPT 07-01 14:39 → 2NB 07-01 14:57 → EDTRNSPT 07-01 15:12 → CMPTRNSPT 07-01 15:58
PROVIDERS: Physician Assistant Medical; Student in an Organized Health Care Education/Training Program
DX: A41.9 Sepsis, unspecified organism (principal); J96.01 Acute respiratory failure with hypoxia; J13 Pneumonia due to Streptococcus pneumoniae; R65.20 Severe sepsis without septic shock; Q90.9 Down syndrome, unspecified; F79 Unspecified intellectual disabilities; H10.9 Unspecified conjunctivitis; E03.9 Hypothyroidism, unspecified
CPT/HCPCS: 2NBP; 36415; 71046; 82436; 87040; 87070; 87449; 87450; 87804; 87804-59; 93005; 93010; J0131; J0456; J0696; J1650; J3490; J7060

== ENCOUNTER 2017-09-19 00:48 | Emergency (ER) | payer OTHER, MEDICARE ==
[~2017-09-19 00:48] MED LIST changes: +AUGMENTIN 875-1 EACH PO
--- NOTE | 2017-09-19 00:52 | ED GENERAL ADULT ---
History of Present Illness General Chief Complaint: General Adult Stated Complaint: BIBA C/O "FLU LIKE SYMPTOMS" Source: patient Exam Limitations: no limitations Vital Signs & Intake/Output Vital Signs & Intake/Output . Allergies Coded Allergies: NO KNOWN ALLERGIES (05/13/13) Reconcile Medications Amoxicillin/Potassium Clav (Augmentin 875-125 Tablet) 875 MG-125 MG TABLET 1 TAB PO BID pneumonia Levothyroxine Sodium (Synthroid) 137 MCG TABLET 1 TAB PO DAILY HYPOTHYROIDISM (Reported) Triage Nurses Notes Reviewed? yes Onset: Gradual Duration: day(s):, waxing and waning Timing: recent history Injury Environment: home Severity: mild Modifying Factors: Improves With: rest. Associated Symptoms: nasuea, diarrhea HPI: 46 yo gentleman h/o Down syndrome, presents with his brother who has nausea, vomiting, diarrhea. Per his brother, "I got it... and now he has just started with the same symptoms." He has no fever, chills, dysuria, cough, phlegm. She is otherwise well. Past History Medical History Any Pertinent Medical History? see below for history Neurological: DOWN SYNDROME EENT: NONE Cardiovascular: NONE Respiratory: pneumonia Gastrointestinal: NONE Hepatic: NONE Renal: NONE Musculoskeletal: NONE Psychiatric: NONE Endocrine: hypothyroidism Blood Disorders: NONE Cancer(s): NONE ASSISTANT GROCERY/Reproductive: NONE Other Medical Hx: Down's syndrome History of MRSA: No History of VRE: No History of CDIFF: No Surgical History Surgical History: none Psychosocial History Who do you live with Family Services at Home None What is your primary language Brazilian Family History Family History, If Any: MOTHER Relation not specified for: FH: asthma FH: emphysema Hx Contributory? No Review of Systems Review of Systems Constitutional: Reports: no symptoms. EENTM: Reports: no symptoms. Respiratory: Reports: no symptoms. Cardiovascular: Reports: no symptoms. GI: Reports: no symptoms. Genitourinary: Reports: no symptoms. Musculoskeletal: Reports: no symptoms. Skin: Reports: no symptoms. Neurological/Psychological: Reports: no symptoms. Hematologic/Endocrine: Reports: no symptoms. Immunologic/Allergic: Reports: no symptoms. All Other Systems: Reviewed and Negative Physical Exam Physical Exam General Appearance: well developed/nourished, no apparent distress Head: atraumatic, normal appearance Eyes: Bilateral: normal appearance. Ears, Nose, Throat: normal pharynx, normal ENT inspection Neck: normal inspection, supple, full range of motion Respiratory: normal breath sounds, chest non-tender, no respiratory distress, quiet respiration, lungs clear Cardiovascular: regular rate/rhythm Gastrointestinal: normal bowel sounds, soft, non-tender, no organomegaly Back: normal inspection Extremities: normal inspection, normal capillary refill, normal range of motion, no edema Neurologic/Psych: no motor/sensory deficits, awake, alert, oriented x 3 Skin: intact, normal color, warm/dry Core Measures ACS in differential dx? No CVA/TIA Diagnosis: No Sepsis Present: No Sepsis Focused Exam Completed? No Progress Differential Diagnoses I considered the following diagnoses in my evaluation of the patient: viral syndrome vs food poisoning vs other. Plan of Care: Orders Procedure Date/time Status URINALYSIS 09/19 108 Active RAPID VIRAL INFLUENZA A 09/19 53 Active TROPONIN LEVEL 09/19 53 Active LIPASE 09/19 53 Active HEPATIC FUNCTION PANEL 09/19 53 Active CBC WITHOUT DIFFERENTIAL 09/19 53 Complete BASIC METABOLIC PANEL 09/19 53 Active AMYLASE 09/19 53 Active EKG 09/19 53 Active Laboratory Tests 09/19/17 0140: Sodium Pending, Potassium Pending, Chloride Pending, Carbon Dioxide Pending, Anion Gap Pending, BUN Pending, Creatinine Pending, BUN/Creatinine Ratio Pending , Glucose Pending, Calcium Pending, Total Bilirubin Pending, Direct Bilirubin Pending, AST Pending, ALT Pending, Alkaline Phosphatase Pending, Troponin I Pending, Total Protein Pending, Albumin Pending, Amylase Pending, Lipase Pending , CBC w Diff NO MAN DIFF REQ, RBC 4.71, MCV 94.4 H, MCH 31.9 H, MCHC 33.8, RDW 14.0, MPV 6.2 L, Gran % 75.4 H, Lymphocytes % 13.1 L, Monocytes % 10.3 H, Eosinophils % 1.0, Basophils % 0.2, Absolute Granulocytes 8.5 H, Absolute Lymphocytes 1.5, Absolute Monocytes 1.2 H, Absolute Eosinophils 0.1, Absolute Basophils 0 Microbiology 09/19 53 NASOPHARYN: Influenza Virus A & B Rapid Smear - ORD Initial ED EKG: normal axis, normal intervals, normal p-waves, normal QRS complex, normal sinus rhythm Departure Departure Disposition: HOME OR SELF CARE Condition: Stable Clinical Impression Primary Impression: Gastroenteritis Secondary Impressions: Diarrhea, Nausea and vomiting Referrals: Unknown Departure Forms: Customer Survey General Discharge Information Comments pt feeling well at discharge... non tender abdomen on exam x 2... benign labs/ xray... family feels comfortable going home with him... close follow up advised. Critical Care Note Critical Care Note Critical Care Time: non-applicable
[2017-09-19 01:15] VITALS: BP 104/96
--- NOTE | 2017-09-19 01:46 | RADIOLOGY REPORT ---
EXAMINATION: XR PORTABLE CHEST CLINICAL INFORMATION: Chest pain COMPARISON: 06/29/2017 TECHNIQUE: Portable frontal view of the chest was obtained. FINDINGS: The lungs are well expanded. There is no focal consolidation, edema, or effusion. No pneumothorax. The cardiomediastinal silhouette is within normal limits. No acute osseous abnormality. IMPRESSION: No acute pulmonary finding.
[2017-09-19 02:13] LABS: ABSOLUTE BASOPHIL COUNT 0 /CUMM (0.0-0.2); ABSOLUTE EOSINOPHIL COUNT 0.1 /CUMM (0.0-0.7); ABSOLUTE GRANULOCYTE CT 8.5 /CUMM (1.4-6.5); ABSOLUTE LYMPH COUNT 1.5 /CUMM (1.2-3.4); ABSOLUTE MONOCYTE COUNT 1.2 /CUMM (0.10-0.60); BASOPHIL % 0.2 % (0.0-2.0); GRANULOCYTE % 75.4 % (42.2-75.2); HEMATOCRIT 44.4 % (42-52); MEAN CORPUSCULAR HGB 31.9 PG (27.0-31.0); MEAN CORPUSCULAR HGB CONC 33.8 G/DL (33.0-37.0); MEAN CORPUSCULAR VOLUME 94.4 FL (80.0-94.0); MEAN PLATELET VOLUME 6.2 FL (7.4-10.4); PLATELET COUNT 361 /CUMM (130-400); RED BLOOD CELL CT 4.71 /CUMM (4.70-6.10); WHITE BLOOD CELL COUNT 11.2 /CUMM (4.8-10.8)
== END 2017-09-19 03:10 ==
LOC: ERH 00:48
PROVIDERS: Pediatrics
DX: K52.9 Noninfective gastroenteritis and colitis, unspecified (principal)
CPT/HCPCS: 71045; 87804; 87804-59; 93005; 93010

== ENCOUNTER 2017-12-09 20:41 | Emergency (ER) | payer OTHER, MEDICARE ==
--- NOTE | 2017-12-09 23:27 | ED GENERAL ADULT ---
History of Present Illness General Chief Complaint: General Adult Stated Complaint: "COUGH, GREEN PHLEM, CONGESTED" Source: family Exam Limitations: mental retardation Vital Signs & Intake/Output Vital Signs & Intake/Output Vital Signs Date Time Temp Pulse Resp B/P B/P Pulse O2 O2 Flow FiO2 Mean Ox Delivery Rate 12/09 2046 96.9 107 16 119/63 95 Room Air Allergies Coded Allergies: NO KNOWN ALLERGIES (05/13/13) Reconcile Medications Amoxicillin/Potassium Clav (Augmentin 250-62.5 MG/5 Ml) 250 MG-62.5 MG/5 ML SUSP.RECON 15 ML PO BID BRONCHITIS X 10 DAYS....PLEASE DISREGARD PRIOR RX Amoxicillin/Potassium Clav (Augmentin 875-125 Tablet) 875 MG-125 MG TABLET 1 TAB PO BID pneumonia Benzonatate (Tessalon Perle) 100 MG CAPSULE 1 CAP PO TID COUGH Levothyroxine Sodium (Synthroid) 137 MCG TABLET 1 TAB PO DAILY HYPOTHYROIDISM (Reported) Triage Note: PT WITH HX DOWN SYNDROME TO TRIAGE WITH BROTHER FOR SAME SYMPTOMS OF CONGESTION, AND PRODUCTIVE COUGH X FEW DAYS. NO ACUTE RESP DISTRESS NOTED. Triage Nurses Notes Reviewed? yes Onset: Gradual Duration: day(s): Timing: recent history Injury Environment: home Severity: mild Modifying Factors: Improves With: rest. Associated Symptoms: cough HPI: 47-year-old gentleman history of Down syndrome, presents with 3-4 days of cough productive of green sputum. He is here with his brother who presents with similar symptoms. He has no fever chills wheezing nausea vomiting chest pain diarrhea, runny nose. He is otherwise well Past History Travel History Traveled to [place] past 21 day No Medical History Any Pertinent Medical History? see below for history Neurological: DOWN SYNDROME EENT: NONE Cardiovascular: NONE Respiratory: pneumonia Gastrointestinal: NONE Hepatic: NONE Renal: NONE Musculoskeletal: NONE Psychiatric: NONE Endocrine: hypothyroidism Blood Disorders: NONE Cancer(s): NONE VOICER/Reproductive: NONE Other Medical Hx: Down's syndrome History of MRSA: No History of VRE: No History of CDIFF: No Surgical History Surgical History: none Psychosocial History Who do you live with Family Services at Home None What is your primary language Mohawk Tobacco Use: Never used ETOH Use: denies use Family History Family History, If Any: MOTHER Relation not specified for: FH: asthma FH: emphysema Hx Contributory? No Review of Systems Review of Systems Constitutional: Denies: see HPI. Physical Exam Physical Exam General Appearance: well developed/nourished Comments: Review of Systems - except as otherwise noted in HPI Review of Systems Constitutional:no symptoms. EENTM:no symptoms. Respiratory:no symptoms. Cardiovascular:no symptoms. GI:no symptoms. Genitourinary:no symptoms. Musculoskeletal:no symptoms. Skin:no symptoms. Neurological/Psychological:no symptoms. Hematologic/Endocrine:no symptoms. Immunologic/Allergic:no symptoms. All Other Systems: Reviewed and Negative Physical Exam Physical Exam General Appearance: well developed/nourished, no apparent distress Head: atraumatic, normal appearance Eyes: Bilateral: normal appearance. Ears, Nose, Throat: normal pharynx, normal ENT inspection Neck: normal inspection, supple, full range of motion Respiratory: normal breath sounds, chest non-tender, no respiratory distress, mild rhonchi Cardiovascular: regular rate/rhythm Gastrointestinal: normal bowel sounds, soft, non-tender, no organomegaly Back: normal inspection, normal range of motion Extremities: normal inspection, normal capillary refill, normal range of motion, no edema Neurologic/Psych: no motor/sensory deficits, awake, alert, oriented x 3 Skin: intact, normal color, warm/dry Core Measures ACS in differential dx? No CVA/TIA Diagnosis: No Sepsis Present: No Sepsis Focused Exam Completed? No Progress Differential Diagnoses I considered the following diagnoses in my evaluation of the patient: uri vs bronchitis vs other Plan of Care: Prescription for Augmentin and Tessalon Perles sent to pharmacy. Close follow- up advised Initial ED EKG: none Departure Departure Disposition: HOME OR SELF CARE Condition: Stable Clinical Impression Primary Impression: Bronchitis Referrals: Patient Has No Primary Care Dr (PCP/Family) Departure Forms: Customer Survey General Discharge Information Prescriptions: Current Visit Scripts Benzonatate (Tessalon Perle) 1 CAP PO TID #30 CAP Amoxicillin/Potassium Clav (Augmentin 250-62.5 MG/5 Ml) 15 ML PO BID #300 ML X 10 DAYS....PLEASE DISREGARD PRIOR RX Critical Care Note Critical Care Note Critical Care Time: non-applicable
[2017-12-09] MEDS ORDERED: AUGMENTIN 875-1 EACH PO (23:30)
[2017-12-09] MEDS ORDERED: TESSALON PERLE100 M1 PO (23:30)
[2017-12-09] MEDS ORDERED: AUGMENTIN250 MG/51 PO (23:32)
[2017-12-10 00:16] VITALS: BP 118/62
== END 2017-12-10 00:49 ==
LOC: ERH 20:41
DX: J40 Bronchitis, not specified as acute or chronic (principal)